=== PATIENT | female | born 1940 | race Caucasian/White ===

== ENCOUNTER 2018-05-27 09:23 | Emergency (ER) | payer MEDICARE, OTHER ==
[~2018-05-27] VITALS: Ht 172.7 cm; Wt 89.5 kg
[~2018-05-27 09:23] MED LIST: AMIT-189 PO; ASPI-1265 PO; CBD OIL PO; CHOL10002 PO
[2018-05-27] MEDS ORDERED: triamcinolone acetonide 40mg/ml inj IJ ONE (12:25)
[2018-05-27] MEDS ORDERED: BUPIVAcaine/PF 2.5 mg/ml (0.25%) 30ml vial IJ ONE (12:25)
[2018-05-27] MEDS ORDERED: BUPIVAcaine/PF 2.5mg/ml (0.25%) 10ml vial IJ ONE (12:30)
[2018-05-27] MEDS ORDERED: HYDROcodone/acetaminophen 10/325mg tab PO ONE (12:55)
[2018-05-27] MEDS ORDERED: HYDR-3973 PO (13:15)
[2018-05-27 13:22] VITALS: BP 146/85
== END 2018-05-27 13:24 | disposition home or self-care (01) ==
LOC: ER 09:24
DX: M25.412 Effusion, left shoulder (principal); M25.512 Pain in left shoulder; M06.9 Rheumatoid arthritis, unspecified; E78.00 Pure hypercholesterolemia, unspecified; I10 Essential (primary) hypertension; G89.29 Other chronic pain; Z98.890 Other specified postprocedural states; Z88.0 Allergy status to penicillin; Z88.1 Allergy status to other antibiotic agents; Z88.5 Allergy status to narcotic agent; Z79.82 Long term (current) use of aspirin
CPT/HCPCS: 20552; 99284; J3301; J3490

== ENCOUNTER 2018-10-13 08:58 | Inpatient (IN) | payer MEDICARE, OTHER ==
[~2018-10-13] VITALS: Ht 172.7 cm; Wt 86.4 kg
[2018-10-13] MEDS ORDERED: normal saline 1000ML IV soln IVB ONE (09:15)
[2018-10-13] MEDS ORDERED: ondansetron/PF 4mg/2ml inj IV ONE (09:15)
--- NOTE | 2018-10-13 09:26 | NUR ---
CAREGIVER MONICA PHONE NUMBER [phone]
[2018-10-13 09:35] LABS: BASOPHILS % (AUTO) 0.3 % (0-1); EOSINOPHILS # (AUTO) 0.3 X10'3 (0-0.9); EOSINOPHILS % (AUTO) 2.6 % (0-6); HEMOGLOBIN 11.3 g/dl (12.0-16.0); LYMPHOCYTES # (AUTO) 1.2 X10'3 (1.1-4.8); LYMPHOCYTES % (AUTO) 11.5 % (21-51); MEAN CORPUSCULAR HEMOGLOBIN 30.7 PG (27.0-31.0); MEAN CORPUSCULAR HGB CONC 33.2 g/dL (33.0-36.5); MEAN CORPUSCULAR VOLUME 92.4 FL (78-98); MEAN PLATELET VOLUME 9.2 FL (7.4-10.4); MONOCYTES # (AUTO) 1.1 X10'3 (0-0.9); MONOCYTES % (AUTO) 9.8 % (2-12); NEUTROPHILS # (AUTO) 8.1 X10'3 (1.8-7.7); NEUTROPHILS % (AUTO) 75.8 % (42-75); PLATELET COUNT 314 X10'3 (140-440); RED BLOOD COUNT 3.68 X10'6 (4.20-5.60); RED CELL DISTRIBUTION WIDTH 13.5 % (11.5-14.5); WHITE BLOOD COUNT 10.7 X10'3 (4.5-11.0)
[2018-10-13 09:44] LABS: ALANINE AMINOTRANSFERASE 11 U/L (12-78); ALBUMIN 2.8 G/DL (3.4-5.0); ALBUMIN/GLOBULIN RATIO 0.7 (1.1-1.5); ALKALINE PHOSPHATASE 79 IU/L (46-116); ANION GAP 12 (8-16); ASPARTATE AMINO TRANSFERASE 6 U/L (10-37); BILIRUBIN,TOTAL 0.2 MG/DL (0.1-1.0); BLOOD UREA NITROGEN 45 MG/DL (7-18); BUN/CREATININE RATIO 9.3 (6.6-38.0); CALCIUM 8.6 MG/DL (8.5-10.1); CHLORIDE 110 MMOL/L (99-107); CREATININE 4.82 MG/DL (0.40-0.90); GLUCOSE 112 MG/DL (70-104); POTASSIUM 4.5 MMOL/L (3.5-5.1); SODIUM 143 MMOL/L (135-145); TOTAL CARBON DIOXIDE 20.7 MMOL/L (24-32); eGFR 9 ML/MIN
[2018-10-13 09:48] LABS: LIPASE 65 U/L (73-393); TROPONIN I < 0.04 NG/ML (0.0-0.05)
[2018-10-13 10:04] LABS: CLARITY,URINE SLIGHTLY CLOUDY (Clear); COLOR,URINE YELLOW (Yellow); GLUCOSE, URINE NEGATIVE (Neg); KETONES,URINE NEGATIVE (Neg); LEUKOCYTE ESTERASE ,URINE NEGATIVE (Neg); NITRITES, URINE NEGATIVE (Neg); OCCULT BLOOD,URINE NEGATIVE (Neg); PROTEIN,URINE 100 mg/dl (Neg); UROBILINOGEN,URINE 0.2 E.U/dL (0.2-1.0)
[2018-10-13 10:05] LABS: UA COLLECTION TYPE STRAIGHT CATH
[2018-10-13 10:15] LABS: BACTERIA,URINE NONE SEEN /HPF (Neg); RBC,URINE NONE SEEN /HPF (0-2); SQUAMOUS EPITHELIAL CELL,UR FEW /LPF (FEW); WBC,URINE 0-4 /HPF (0-4)
[2018-10-13 10:16] LABS: AMORPHOUS URATES 1+
[2018-10-13] MEDS ORDERED: acetaminophen 325mg tablet PO PRN ×2 (10:25)
[2018-10-13] MEDS ORDERED: ondansetron/PF 4mg/2ml inj IV PRN (10:25)
[2018-10-13] MEDS ORDERED: HYDROcodone/acetaminophen 5mg/325mg tablet PO PRN (10:25)
[2018-10-13] MEDS ORDERED: morphine 2 MG/ML inj. syringe IV PRN (10:25)
--- NOTE | 2018-10-13 10:49 | NUR ---
US WITH PATIENT
--- NOTE | 2018-10-13 11:12 | NUR ---
UNABLE TO UPDATE HOME MEDICATIONS BECAUSE ALFONSOVER HAS NOT RETURNED WITH MEDICATIONS
[2018-10-13] MEDS ORDERED: AMLO10TA PO (12:01)
--- NOTE | 2018-10-13 12:16 | NUR ---
Received report from ED RN Lj. Patient arrived to PCU at 1130 and was transferred to the bed. Patient was oriented to the room, skin check was performed, physical assessment was done and the patient was set up with a wick. Vital signs were obtainwed and telemetry monitoring was initiated. Will continue to monitor.
[2018-10-13] MEDS ORDERED: metoclopramide 10mg tablet PO PRN (12:25)
[2018-10-13] MEDS ORDERED: pantoprazole 40mg Tablet.DR PO SCH (12:25)
[2018-10-13] MEDS: normal saline 1000ml 1,000 ML IV SCH (12:39)
[2018-10-13] MEDS ORDERED: SODI650T29 PO (14:09)
[2018-10-13] MEDS ORDERED: FERR325T32 PO (14:09)
[2018-10-13] MEDS ORDERED: SIMV20TA5 PO (14:09)
[2018-10-13 15:00] VITALS: BP 157/80
--- NOTE | 2018-10-13 16:03 | NUR ---
promotional table spacer PAGER ID: [phone] MESSAGE: Francesco 2017BMaldonado. Pt would like something for heart burn please, she uses tums at home. Vandana [phone]
--- NOTE | 2018-10-13 16:49 | NUR ---
PAGER ID: [phone] MESSAGE: Maldonado Tilley. patient has a 24 hour urine collection ordered by Dr. Alatorre, and we have tried [address] a quevedo catheter with no success. Please advise Vandana [phone]
[2018-10-13] MEDS ORDERED: pantoprazole 40mg Tablet.DR PO ONE (17:20)
--- NOTE | 2018-10-13 18:11 | NUR ---
Problems reprioritized. Patient report given, questions answered & plan of care reviewed with Torri SCHROEDER. Patient stable at transfer of care.
--- NOTE | 2018-10-13 18:16 | NUR ---
Patient in room PCU 3017. I have received report from ELDA Ross and had the opportunity to ask questions and assume patient care.
[2018-10-13 19:00] VITALS: BP 164/87
[2018-10-13] MEDS: nystatin 15 GM powder TP SCH (19:58)
[2018-10-13] MEDS: lactobacillus rhamnosus 10,000 MMU CELLS/CAPSULE PO SCH (19:59)
[2018-10-13] MEDS: docusate sod 100mg capsule PO SCH (19:59)
[2018-10-13] MEDS: heparin, porcine 5000 units/ml vial SQ SCH (20:14)
[2018-10-13 23:00] VITALS: BP 140/66
[2018-10-14] VITALS (11 sets, daily range): BP systolic 100–168; BP diastolic 63–81
[2018-10-14] MEDS: normal saline 1000ml 1,000 ML IV SCH ×3 (04:06→16:30)
[2018-10-14 05:41] LABS: BASOPHILS % (AUTO) 0.3 % (0-1); EOSINOPHILS # (AUTO) 0.4 X10'3 (0-0.9); EOSINOPHILS % (AUTO) 3.6 % (0-6); HEMATOCRIT 30.1 % (35.0-45.0); HEMOGLOBIN 9.9 g/dl (12.0-16.0); LYMPHOCYTES # (AUTO) 1.8 X10'3 (1.1-4.8); LYMPHOCYTES % (AUTO) 18.1 % (21-51); MEAN CORPUSCULAR HEMOGLOBIN 30.5 PG (27.0-31.0); MEAN CORPUSCULAR HGB CONC 32.8 g/dL (33.0-36.5); MEAN CORPUSCULAR VOLUME 93.1 FL (78-98); MEAN PLATELET VOLUME 9.7 FL (7.4-10.4); MONOCYTES # (AUTO) 1.1 X10'3 (0-0.9); NEUTROPHILS # (AUTO) 6.7 X10'3 (1.8-7.7); PLATELET COUNT 280 X10'3 (140-440); RED BLOOD COUNT 3.23 X10'6 (4.20-5.60); RED CELL DISTRIBUTION WIDTH 13.7 % (11.5-14.5)
[2018-10-14 05:42] LABS: ALBUMIN 2.3 G/DL (3.4-5.0); ANION GAP 9 (8-16); BLOOD UREA NITROGEN 39 MG/DL (7-18); BUN/CREATININE RATIO 8.5 (6.6-38.0); CALCIUM 7.6 MG/DL (8.5-10.1); CHLORIDE 114 MMOL/L (99-107); CREATININE 4.59 MG/DL (0.40-0.90); GLUCOSE 87 MG/DL (70-104); MAGNESIUM 1.8 MG/DL (1.5-2.4); PHOSPHORUS 4.7 MG/DL (2.3-4.5); POTASSIUM 4.6 MMOL/L (3.5-5.1); SODIUM 144 MMOL/L (135-145); TOTAL CARBON DIOXIDE 20.8 MMOL/L (24-32); eGFR 9 ML/MIN
--- NOTE | 2018-10-14 06:26 | NUR ---
Problems reprioritized. Patient report given, questions answered & plan of care reviewed with ELDA Ross .
--- NOTE | 2018-10-14 06:26 | NUR ---
Patient in room PCU 3017. I have received report from ELDA Wild and had the opportunity to ask questions and assume patient care.
--- NOTE | 2018-10-14 06:35 | NUR ---
Patient in room PCU 3017. I have received report from Torri SCHROEDER and had the opportunity to ask questions and assume patient care.
[2018-10-14] MEDS: ciprofloxacin 250mg tablet PO SCH (07:44)
[2018-10-14] MEDS: pantoprazole 40mg Tablet.DR PO SCH (07:44)
[2018-10-14] MEDS: lactobacillus rhamnosus 10,000 MMU CELLS/CAPSULE PO SCH ×2 (07:44→19:25)
[2018-10-14] MEDS: amLODIPine 5mg tablet PO SCH (07:44)
[2018-10-14] MEDS: docusate sod 100mg capsule PO SCH ×2 (07:44→19:25)
[2018-10-14] MEDS: aspirin 81mg tab.chew PO SCH (07:44)
[2018-10-14] MEDS: heparin, porcine 5000 units/ml vial SQ SCH ×2 (07:48→19:25)
[2018-10-14] MEDS: nystatin 15 GM powder TP SCH ×2 (07:50→19:25)
--- NOTE | 2018-10-14 12:04 | NUR ---
Alda Okeefe rm [id number] re: Orthostats > 30 mm/hg drop in SBP from sitting to standing SBP 160 drop to 100 asymptomatic
--- NOTE | 2018-10-14 18:15 | NUR ---
Problems reprioritized. Patient report given, questions answered & plan of care reviewed with Alex Aden stable at transfer of care.
--- NOTE | 2018-10-14 18:29 | NUR ---
Problems reprioritized. Patient report given, questions answered & plan of care reviewed with Alex SCHROEDER. Patient stable at transfer of care.
--- NOTE | 2018-10-14 18:30 | NUR ---
Problems reprioritized. Patient report given, questions answered & plan of care reviewed with ELDA Cool .
--- NOTE | 2018-10-14 18:33 | NUR ---
Orientee documentation: I have reviewed and agree with interventions, assessments performed and documented by Shannen SCHROEDER. Orientee Medication Administration: For this medication-pass time frame, medication were reviewed, dispensed, administered and documented per hospital policy by Shannen SCHROEDER.
--- NOTE | 2018-10-14 18:45 | NUR ---
Patient in room PCU 3017. I have received report from Vandana/Shannen RNs and had the opportunity to ask questions and assume patient care.
[2018-10-14] MEDS ORDERED: Melatonin 3mg tablet PO PRN (22:15)
[2018-10-15] MEDS: normal saline 1000ml 1,000 ML IV SCH (01:10)
[2018-10-15 02:00] VITALS: BP 134/76
[2018-10-15 06:01] LABS: ALBUMIN 2.3 G/DL (3.4-5.0); ANION GAP 10 (8-16); BLOOD UREA NITROGEN 39 MG/DL (7-18); BUN/CREATININE RATIO 8.7 (6.6-38.0); CALCIUM 7.5 MG/DL (8.5-10.1); CHLORIDE 114 MMOL/L (99-107); CREATININE 4.47 MG/DL (0.40-0.90); GLUCOSE 95 MG/DL (70-104); MAGNESIUM 1.7 MG/DL (1.5-2.4); POTASSIUM 4.8 MMOL/L (3.5-5.1); SODIUM 143 MMOL/L (135-145); TOTAL CARBON DIOXIDE 18.7 MMOL/L (24-32); eGFR 9 ML/MIN
[2018-10-15 06:02] LABS: BASOPHILS # (AUTO) 0.1 X10'3 (0-0.2); BASOPHILS % (AUTO) 0.6 % (0-1); EOSINOPHILS # (AUTO) 0.4 X10'3 (0-0.9); EOSINOPHILS % (AUTO) 4.3 % (0-6); HEMATOCRIT 30.7 % (35.0-45.0); HEMOGLOBIN 9.9 g/dl (12.0-16.0); LYMPHOCYTES % (AUTO) 19.7 % (21-51); MEAN CORPUSCULAR HEMOGLOBIN 30.1 PG (27.0-31.0); MEAN CORPUSCULAR HGB CONC 32.2 g/dL (33.0-36.5); MEAN CORPUSCULAR VOLUME 93.5 FL (78-98); MEAN PLATELET VOLUME 10.2 FL (7.4-10.4); MONOCYTES # (AUTO) 1.2 X10'3 (0-0.9); MONOCYTES % (AUTO) 11.6 % (2-12); NEUTROPHILS # (AUTO) 6.5 X10'3 (1.8-7.7); NEUTROPHILS % (AUTO) 63.8 % (42-75); PLATELET COUNT 287 X10'3 (140-440); RED BLOOD COUNT 3.28 X10'6 (4.20-5.60); RED CELL DISTRIBUTION WIDTH 13.8 % (11.5-14.5); WHITE BLOOD COUNT 10.2 X10'3 (4.5-11.0)
--- NOTE | 2018-10-15 06:09 | NUR ---
Orientee documentation: I have reviewed and agree with all interventions, assessments performed and documented by Sierra SCHROEDER
--- NOTE | 2018-10-15 06:28 | NUR ---
Problems reprioritized. Patient report given, questions answered & plan of care reviewed with Shannen SCHROEDER.
--- NOTE | 2018-10-15 06:30 | NUR ---
Patient in room PCU 3017. I have received report from ELDA Cool and had the opportunity to ask questions and assume patient care.
[2018-10-15 07:00] VITALS: BP 133/71
[2018-10-15] MEDS: docusate sod 100mg capsule PO SCH (07:39)
[2018-10-15] MEDS: ciprofloxacin 250mg tablet PO SCH (07:39)
[2018-10-15] MEDS: amLODIPine 5mg tablet PO SCH (07:39)
[2018-10-15] MEDS: aspirin 81mg tab.chew PO SCH (07:39)
[2018-10-15] MEDS: pantoprazole 40mg Tablet.DR PO SCH (07:39)
[2018-10-15] MEDS: heparin, porcine 5000 units/ml vial SQ SCH (07:40)
[2018-10-15] MEDS: lactobacillus rhamnosus 10,000 MMU CELLS/CAPSULE PO SCH (07:40)
[2018-10-15] MEDS: nystatin 15 GM powder TP SCH (07:43)
--- NOTE | 2018-10-15 10:22 | NUR ---
Alda Okeefe Rm 17B waiting for discharge orders. Thank you ELDA Pride [id number]
[2018-10-15] MEDS ORDERED: CIPR250T4 PO (10:55)
[2018-10-15] MEDS ORDERED: METR-159 PO (10:55)
--- NOTE | 2018-10-15 11:45 | NUR ---
Pt discharge to home. Staff wheelchair to curb and transported in private car with caregiver. All belongings and paperwork in hand.
== END 2018-10-15 11:45 | disposition home or self-care (01) | DRG 391 ==
LOC: ER 08:59 → PCU 3S 11:36 → CMPBEDREQ 15:16
PROVIDERS: ADMIT Internal Medicine; ATTEND Internal Medicine
DX: A08.4 Viral intestinal infection, unspecified (principal); N17.0 Acute kidney failure with tubular necrosis; N18.4 Chronic kidney disease, stage 4 (severe); E78.5 Hyperlipidemia, unspecified; M06.9 Rheumatoid arthritis, unspecified; E86.0 Dehydration; E78.00 Pure hypercholesterolemia, unspecified; I12.9 Hypertensive chronic kidney disease with stage 1 through stage 4 chronic kidney disease, or unspecified chronic kidney disease; K21.9 Gastro-esophageal reflux disease without esophagitis; Z66 Do not resuscitate
CPT/HCPCS: 36415; 71045; 74018; 76700; 80048; 80053; 81001; 82570; 83605; 83690; 83735; 84100; 84156; 84484; 84540; 85025; 87040; 87081; 93005; 93306; 96361; 96374; 97110; 97116; 97162; 99285; G0378; J1644; J2405; J7030

== ENCOUNTER 2019-09-30 16:18 | Emergency (ER) | payer MEDICARE, OTHER ==
[~2019-09-30] VITALS: Ht 172.7 cm; Wt 72.2 kg
[~2019-09-30 16:18] MED LIST changes: +APIX2.5T PO; -ASPI-1265 PO; -CBD OIL PO; -CHOL10002 PO; +DILT240C94 PO; +ONDA4TAB6 PO
[2019-09-30] MEDS ORDERED: diltiazem 5mg/ml 5ml inj. IV ONE ×2 (16:45→18:10)
[2019-09-30] MEDS ORDERED: diltiazem 30mg tablet PO ONE ×2 (16:45→18:10)
[2019-09-30 17:04] LABS: BASOPHILS % (AUTO) 0.3 % (0-1); EOSINOPHILS # (AUTO) 0.3 X10'3 (0-0.9); EOSINOPHILS % (AUTO) 3.3 % (0-6); HEMATOCRIT 30.9 % (35.0-45.0); HEMOGLOBIN 10.1 g/dl (12.0-16.0); LYMPHOCYTES # (AUTO) 1.8 X10'3 (1.1-4.8); LYMPHOCYTES % (AUTO) 19.4 % (21-51); MEAN CORPUSCULAR HEMOGLOBIN 31.6 PG (27.0-31.0); MEAN CORPUSCULAR HGB CONC 32.6 g/dL (33.0-36.5); MEAN CORPUSCULAR VOLUME 96.8 FL (78-98); MONOCYTES # (AUTO) 1.1 X10'3 (0-0.9); MONOCYTES % (AUTO) 11.8 % (2-12); NEUTROPHILS % (AUTO) 65.2 % (42-75); PLATELET COUNT 301 X10'3 (140-440); RED BLOOD COUNT 3.19 X10'6 (4.20-5.60); WHITE BLOOD COUNT 9.2 X10'3 (4.5-11.0)
[2019-09-30] MEDS ORDERED: APIX2.5T PO (17:11)
[2019-09-30] MEDS ORDERED: DILT-103 PO (17:11)
[2019-09-30 17:15] LABS: ALANINE AMINOTRANSFERASE 21 U/L (12-78); ALBUMIN 3.3 G/DL (3.4-5.0); ALBUMIN/GLOBULIN RATIO 0.9 (1.1-1.5); ALKALINE PHOSPHATASE 114 IU/L (46-116); ANION GAP 13 (8-16); ASPARTATE AMINO TRANSFERASE 12 U/L (10-37); BILIRUBIN,TOTAL 0.4 MG/DL (0.1-1.0); BLOOD UREA NITROGEN 49 MG/DL (7-18); BUN/CREATININE RATIO 11.2 (6.6-38.0); CHLORIDE 110 MMOL/L (99-107); CREATININE 4.38 MG/DL (0.40-0.90); GLUCOSE 104 MG/DL (70-104); POTASSIUM 4.6 MMOL/L (3.5-5.1); SODIUM 143 MMOL/L (135-145); TOTAL CARBON DIOXIDE 20.2 MMOL/L (24-32); TOTAL PROTEIN 6.8 G/DL (6.4-8.2); eGFR 10 ML/MIN
[2019-09-30] MEDS ORDERED: acetaminophen 325mg tablet PO ONE (17:20)
[2019-09-30] MEDS ORDERED: hydrALAZINE 25 MG tablet PO STA (18:10)
--- NOTE | 2019-09-30 18:58 | NUR ---
PATIENT AMBULATED 40 FEET WITH SATURATION >94% RA DR. QUEZADA NOTIFIED
--- NOTE | 2019-09-30 19:21 | NUR ---
PT TO BE ADMITTED, AWAITING HOSPITALIST. MED REC COMPLETED ALREADY BY DAY PHARMACIST.
[2019-09-30] MEDS ORDERED: DILT300C53 PO (19:41)
[2019-09-30 20:26] VITALS: BP 123/59
== END 2019-09-30 20:28 | disposition home or self-care (01) ==
LOC: ER 16:18
DX: I48.92 Unspecified atrial flutter (principal); I12.9 Hypertensive chronic kidney disease with stage 1 through stage 4 chronic kidney disease, or unspecified chronic kidney disease; N18.9 Chronic kidney disease, unspecified; I48.91 Unspecified atrial fibrillation; E78.00 Pure hypercholesterolemia, unspecified; M06.9 Rheumatoid arthritis, unspecified; Z98.890 Other specified postprocedural states; Z79.899 Other long term (current) drug therapy; Z88.0 Allergy status to penicillin; Z88.1 Allergy status to other antibiotic agents
CPT/HCPCS: 36415; 71045; 80053; 83605; 83880; 84484; 85025; 87040; 93005; 96374; 96375; 96376; 99285; J3490

== ENCOUNTER 2020-11-20 15:07 | Emergency (ER) | payer OTHER ==
[~2020-11-20] VITALS: Ht 172.7 cm; Wt 55.9 kg
[~2020-11-20 15:07] MED LIST changes: +DILT-103 PO; -DILT240C94 PO; +LEVO250T58 PO; -ONDA4TAB6 PO
[2020-11-20 16:09] LABS: BASOPHILS # (AUTO) 0.1 X10'3 (0-0.2); BASOPHILS % (AUTO) 0.8 % (0-1); EOSINOPHILS # (AUTO) 0.1 X10'3 (0-0.9); EOSINOPHILS % (AUTO) 1.8 % (0-6); HEMATOCRIT 36.6 % (35.0-45.0); HEMOGLOBIN 12.1 g/dl (12.0-16.0); LYMPHOCYTES # (AUTO) 2.1 X10'3 (1.1-4.8); LYMPHOCYTES % (AUTO) 35.1 % (21-51); MEAN CORPUSCULAR HEMOGLOBIN 34.3 PG (27.0-31.0); MEAN CORPUSCULAR VOLUME 103.9 FL (78-98); MEAN PLATELET VOLUME 8.7 FL (7.4-10.4); MONOCYTES # (AUTO) 0.7 X10'3 (0-0.9); MONOCYTES % (AUTO) 11.4 % (2-12); NEUTROPHILS # (AUTO) 3.1 X10'3 (1.8-7.7); NEUTROPHILS % (AUTO) 50.9 % (42-75); PLATELET COUNT 260 X10'3 (140-440); RED BLOOD COUNT 3.52 X10'6 (4.20-5.60); RED CELL DISTRIBUTION WIDTH 15.9 % (11.5-14.5); WHITE BLOOD COUNT 6.1 X10'3 (4.5-11.0)
[2020-11-20 16:19] LABS: ALANINE AMINOTRANSFERASE 10 U/L (12-78); ALBUMIN 3.3 G/DL (3.4-5.0); ALBUMIN/GLOBULIN RATIO 1.1 (1.1-1.5); ALKALINE PHOSPHATASE 101 IU/L (46-116); ANION GAP 5 (8-16); ASPARTATE AMINO TRANSFERASE 9 U/L (10-37); BILIRUBIN,TOTAL 0.4 MG/DL (0.1-1.0); BLOOD UREA NITROGEN 36 MG/DL (7-18); BUN/CREATININE RATIO 9.1 (6.6-38.0); CALCIUM 8.6 MG/DL (8.5-10.1); CHLORIDE 105 MMOL/L (99-107); CREATININE 3.97 MG/DL (0.40-0.90); GLUCOSE 94 MG/DL (70-104); SODIUM 141 MMOL/L (135-145); TOTAL CARBON DIOXIDE 30.7 MMOL/L (24-32); TOTAL PROTEIN 6.4 G/DL (6.4-8.2); eGFR 11 ML/MIN
[2020-11-20 16:45] LABS: LIPASE 57 U/L (73-393)
--- NOTE | 2020-11-20 17:00 | NUR ---
Straight cath attempted at this time, no urine return, patient states she has not had water for a long time.
--- NOTE | 2020-11-20 18:25 | NUR ---
Call to caregiver Jez Barbosa [phone] to pick up man patient per Dr Gaston request.
--- NOTE | 2020-11-20 19:22 | NUR ---
attempted to call caregiver blane again and left message.
--- NOTE | 2020-11-20 19:31 | NUR ---
called home number and left message.
[2020-11-20 20:24] VITALS: BP 111/66
== END 2020-11-20 20:25 | disposition home or self-care (01) ==
LOC: ER 15:08
DX: J90 Pleural effusion, not elsewhere classified (principal); Z20.822 Contact with and (suspected) exposure to COVID-19; I12.0 Hypertensive chronic kidney disease with stage 5 chronic kidney disease or end stage renal disease; N18.6 End stage renal disease; E78.00 Pure hypercholesterolemia, unspecified; M06.9 Rheumatoid arthritis, unspecified; Z99.2 Dependence on renal dialysis; Z88.0 Allergy status to penicillin; Z88.1 Allergy status to other antibiotic agents; Z88.8 Allergy status to other drugs, medicaments and biological substances; Z79.2 Long term (current) use of antibiotics; Z79.899 Other long term (current) drug therapy
CPT/HCPCS: 36415; 71045; 80053; 83690; 83880; 84484; 85025; 87635; 93005; 99285; C9803

== ENCOUNTER 2020-12-06 06:57 | Day surgery (SDC) | payer OTHER ==
[2020-12-06] VITALS (8 sets, daily range): BP systolic 122–150; BP diastolic 51–70
[~2020-12-06] VITALS: Ht 172.7 cm; Wt 56.4 kg
[2020-12-06] MEDS ORDERED: albumin 25% 100mL bottle x 1 IV PRN (07:20)
== END 2020-12-06 11:15 | disposition home or self-care (01) ==
LOC: SSTAY O 06:57
PROVIDERS: ATTEND Radiology Vascular & Interventional Radiology
DX: J90 Pleural effusion, not elsewhere classified (principal); I48.0 Paroxysmal atrial fibrillation; I12.0 Hypertensive chronic kidney disease with stage 5 chronic kidney disease or end stage renal disease; N18.6 End stage renal disease; M06.9 Rheumatoid arthritis, unspecified; Z96.642 Presence of left artificial hip joint; Z20.822 Contact with and (suspected) exposure to COVID-19; Z90.710 Acquired absence of both cervix and uterus; Z98.890 Other specified postprocedural states; Z90.81 Acquired absence of spleen; Z88.0 Allergy status to penicillin; Z88.1 Allergy status to other antibiotic agents; Z88.8 Allergy status to other drugs, medicaments and biological substances
CPT/HCPCS: 32555; 36415; 71045; U0003

== ENCOUNTER 2021-01-20 14:05 | Inpatient (IN) | payer OTHER ==
[~2021-01-20] VITALS: Ht 172.7 cm; Wt 55.9 kg
[~2021-01-20 14:05] MED LIST changes: -AMIT-189 PO; -APIX2.5T PO; -LEVO250T58 PO
[2021-01-20] MEDS ORDERED: nitroGLYCERIN 0.4mg SUBLingual tab SL PRN ×2 (14:50→18:10)
[2021-01-20] MEDS ORDERED: aspirin 81mg tab.chew PO ONE (14:50)
[2021-01-20 15:08] LABS: BASOPHILS # (AUTO) 0.1 X10'3 (0-0.2); BASOPHILS % (AUTO) 1.4 % (0-1); EOSINOPHILS # (AUTO) 0.2 X10'3 (0-0.9); EOSINOPHILS % (AUTO) 3.7 % (0-6); HEMATOCRIT 36.5 % (35.0-45.0); HEMOGLOBIN 12.5 g/dl (12.0-16.0); LYMPHOCYTES # (AUTO) 1.8 X10'3 (1.1-4.8); MEAN CORPUSCULAR HEMOGLOBIN 34.6 PG (27.0-31.0); MEAN CORPUSCULAR HGB CONC 34.3 g/dL (33.0-36.5); MEAN CORPUSCULAR VOLUME 100.9 FL (78-98); MEAN PLATELET VOLUME 8.5 FL (7.4-10.4); MONOCYTES # (AUTO) 0.6 X10'3 (0-0.9); MONOCYTES % (AUTO) 11.9 % (2-12); NEUTROPHILS # (AUTO) 2.3 X10'3 (1.8-7.7); PLATELET COUNT 255 X10'3 (140-440); RED BLOOD COUNT 3.61 X10'6 (4.20-5.60); RED CELL DISTRIBUTION WIDTH 13.7 % (11.5-14.5); WHITE BLOOD COUNT 4.9 X10'3 (4.5-11.0)
--- NOTE | 2021-01-20 15:12 | NUR ---
RICKEY PATIENT'S CAREGIVER: RICKEY CALLED FOR CONDITION REPORT AND STATES THAT HE IS RETURNING TO [place] AND PROBABLY WILL NOT BE ABLE TO PROVIDE TRANSPORTATION FOR PATIENT UNTIL TOMORROW MORNING. RICKEY IS BEING INFORMED THAT WORK-UP IS IN PROGRESS, AND IT IS UNKNOWN IF SHE WILL BE DC OR ADMITTED WHEN WORK-UP IS COMPLETE.
[2021-01-20 15:18] LABS: ALANINE AMINOTRANSFERASE 10 U/L (12-78); ALBUMIN 3.3 G/DL (3.4-5.0); ALKALINE PHOSPHATASE 95 IU/L (46-116); ANION GAP 4 (8-16); ASPARTATE AMINO TRANSFERASE 9 U/L (10-37); BILIRUBIN,TOTAL 0.5 MG/DL (0.1-1.0); BLOOD UREA NITROGEN 24 MG/DL (7-18); BUN/CREATININE RATIO 8.1 (6.6-38.0); CALCIUM 8.4 MG/DL (8.5-10.1); CHLORIDE 103 MMOL/L (99-107); CREATININE 2.95 MG/DL (0.40-0.90); GLUCOSE 90 MG/DL (70-104); POTASSIUM 3.8 MMOL/L (3.5-5.1); SODIUM 144 MMOL/L (135-145); TOTAL CARBON DIOXIDE 36.7 MMOL/L (24-32); TOTAL PROTEIN 6.6 G/DL (6.4-8.2); eGFR 15 ML/MIN
[2021-01-20 15:26] LABS: MAGNESIUM 2.2 MG/DL (1.5-2.4)
--- NOTE | 2021-01-20 17:50 | NUR ---
PATIENT WAS SITTING ON EDGE OF THE GURNEY, BUT FOUND BY STAFF MEMBER, SITTING ON THE FLOOR AT THE FOOT OF THE GURNEY. C/O HEAD AND NECK PAIN. CT SCAN ORDERED. DR. MILLER INFORMED OF PROBABLE FALL.
[2021-01-20] MEDS ORDERED: magnesium 4gm in 100ml NS 100 ML IV PRN (18:10)
[2021-01-20] MEDS ORDERED: aspirin 325mg tablet PO ONE (18:10)
[2021-01-20] MEDS ORDERED: morphine 2 MG/ML inj. syringe IV PRN ×2 (18:10)
[2021-01-20] MEDS ORDERED: aminophylline 250mg/10ml inj. IV PRN (18:10)
[2021-01-20] MEDS ORDERED: magnesium 2GM in 50ml NS 50 ML IV PRN (18:10)
[2021-01-20] MEDS ORDERED: mag hydrox/Alum hydrox/simeth 30ml oral suspension PO PRN (18:10)
[2021-01-20] MEDS ORDERED: acetaminophen 325mg tablet PO PRN ×2 (18:10)
[2021-01-20] MEDS ORDERED: acetaminophen 650mg rectal suppository RC PRN (18:10)
[2021-01-20] MEDS ORDERED: metoprolol tartrate 1mg/ml inj IV PRN (18:10)
[2021-01-20] MEDS: normal saline 1000ml 1,000 ML IV SCH (18:10)
[2021-01-20] MEDS ORDERED: ondansetron/PF 4mg/2ml inj IV PRN (18:10)
[2021-01-20] MEDS ORDERED: magnesium hydroxide 30ml (MOM) UD suspension PO PRN (18:10)
[2021-01-20] MEDS ORDERED: HYDROcodone/acetaminophen 10/325mg tab PO PRN (18:10)
[2021-01-20] MEDS ORDERED: potassium Cl 20 mEq SR tablet PO PRN ×2 (18:10)
[2021-01-20] MEDS ORDERED: potassium Cl 40MEQ/1/2NS 520ml 520 ML IV PRN ×2 (18:10)
[2021-01-20] MEDS ORDERED: bisacodyl 10mg suppository rectal RC PRN (18:10)
[2021-01-20] MEDS ORDERED: magnesium Cl slow-release 64mg tablet PO PRN (18:10)
[2021-01-20] MEDS ORDERED: HYDROcodone/acetaminophen 5mg/325mg tablet PO PRN (18:10)
[2021-01-20] MEDS ORDERED: diphenhydrAMINE 25mg capsule PO PRN (18:10)
[2021-01-20] MEDS ORDERED: regadenoson 0.4mg/5ml syringe IV ONE (18:10)
[2021-01-20 19:10] LABS: HEMOGLOBIN A1C 5.3 % (4.5-6.2)
[2021-01-20] MEDS: K and/or MAG REPLACEMENT MC SCH (20:00)
--- NOTE | 2021-01-20 21:28 | NUR ---
Patient found out of bed with her walker standing in the doorway of ER 13. Pt told she needed to stay in bed in her room for safety reasons. Pt indicated she was unhappy with being in the ER.
[2021-01-20 22:00] VITALS: BP 123/68
[2021-01-20] MEDS: docusate sod 100mg capsule PO SCH (22:53)
[2021-01-20] MEDS: heparin, porcine 5000 units/ml vial SQ SCH (22:54)
[2021-01-21] VITALS (15 sets, daily range): BP systolic 128–153; BP diastolic 53–73
--- NOTE | 2021-01-21 04:52 | NUR ---
Patient at the ER for chest pain. During the night, 9/10 generalized pain was medicated with Morphine IV PRN, and patient later stated relief. Has denied respiratory distress during the shift, and been saturating at 95% and up. Started NPO after midnight for Lexiscan stress test in the am.
--- NOTE | 2021-01-21 07:02 | NUR ---
[facility], WILL POSSIBLY BE PATIENT'S TRANSPORTATION HOME TODAY AND HER CONTACT NUMBER IS: [phone]
[2021-01-21] MEDS: K and/or MAG REPLACEMENT MC SCH ×2 (08:00→20:00)
--- NOTE | 2021-01-21 09:30 | NUR ---
PATIENT WENT TO NUCLEAR MEDICINE FOR STRESS TEST.
[2021-01-21] MEDS ORDERED: regadenoson 0.4mg/5ml syringe IV ONE (09:45)
[2021-01-21 11:32] LABS: ALANINE AMINOTRANSFERASE 13 U/L (12-78); ALBUMIN 3.8 G/DL (3.4-5.0); ALBUMIN/GLOBULIN RATIO 1.1 (1.1-1.5); ALKALINE PHOSPHATASE 100 IU/L (46-116); ANION GAP 9 (8-16); ASPARTATE AMINO TRANSFERASE 20 U/L (10-37); BILIRUBIN,TOTAL 0.5 MG/DL (0.1-1.0); BLOOD UREA NITROGEN 35 MG/DL (7-18); CALCIUM 8.7 MG/DL (8.5-10.1); CHLORIDE 100 MMOL/L (99-107); GLUCOSE 93 MG/DL (70-104); POTASSIUM 4.5 MMOL/L (3.5-5.1); SODIUM 142 MMOL/L (135-145); TOTAL CARBON DIOXIDE 33.3 MMOL/L (24-32); TOTAL PROTEIN 7.2 G/DL (6.4-8.2); eGFR 11 ML/MIN
[2021-01-21 11:34] LABS: CHOL/HDL RATIO 4.8 (0.00-4.99); CHOLESTEROL 247 MG/DL (0-200); HDL CHOLESTEROL 52 MG/DL (35-60); HEMOGLOBIN 13.8 g/dl (12.0-16.0); LDL CHOLESTEROL 162 MG/DL (50-100); MAGNESIUM 2.4 MG/DL (1.5-2.4); PHOSPHORUS 4.3 MG/DL (2.3-4.5); PLATELET COUNT 262 X10'3 (140-440); TRIGLYCERIDES 156 MG/DL (20-135)
[2021-01-21 11:35] LABS: BASOPHILS % (AUTO) 0.5 % (0-1); EOSINOPHILS # (AUTO) 0.2 X10'3 (0-0.9); HEMATOCRIT 40.6 % (35.0-45.0); LYMPHOCYTES # (AUTO) 2.3 X10'3 (1.1-4.8); LYMPHOCYTES % (AUTO) 30.1 % (21-51); MEAN CORPUSCULAR HEMOGLOBIN 34.9 PG (27.0-31.0); MEAN CORPUSCULAR HGB CONC 33.9 g/dL (33.0-36.5); MEAN PLATELET VOLUME 9.1 FL (7.4-10.4); MONOCYTES # (AUTO) 0.9 X10'3 (0-0.9); MONOCYTES % (AUTO) 11.9 % (2-12); NEUTROPHILS # (AUTO) 4.3 X10'3 (1.8-7.7); NEUTROPHILS % (AUTO) 55.5 % (42-75); RED BLOOD COUNT 3.95 X10'6 (4.20-5.60); WHITE BLOOD COUNT 7.8 X10'3 (4.5-11.0)
[2021-01-21] MEDS: docusate sod 100mg capsule PO SCH ×2 (12:25→21:02)
[2021-01-21] MEDS: diltiazem CD 120mg capsule (once-daily) PO SCH (12:26)
[2021-01-21] MEDS: aspirin 81mg, enteric-coated 1 TAB TABLET.DR PO SCH (12:31)
[2021-01-21] MEDS: heparin, porcine 5000 units/ml vial SQ SCH ×2 (12:31→21:03)
[2021-01-21] MEDS: normal saline 1000ml 1,000 ML IV SCH (14:10)
[2021-01-22 02:00] VITALS: BP 131/66
--- NOTE | 2021-01-22 06:24 | NUR ---
Patient in room PCU 3012. I have received report from JULIEN SCHROEDER and had the opportunity to ask questions and assume patient care.
--- NOTE | 2021-01-22 06:29 | NUR ---
Patient in room PCU 3012. I have received report from Shawna SCHROEDER and had the opportunity to ask questions and assume patient care.
[2021-01-22 06:32] LABS: BASOPHILS % (AUTO) 0.8 % (0-1); EOSINOPHILS # (AUTO) 0.2 X10'3 (0-0.9); EOSINOPHILS % (AUTO) 3.4 % (0-6); HEMATOCRIT 35.7 % (35.0-45.0); HEMOGLOBIN 11.9 g/dl (12.0-16.0); LYMPHOCYTES # (AUTO) 2.2 X10'3 (1.1-4.8); LYMPHOCYTES % (AUTO) 36.4 % (21-51); MEAN CORPUSCULAR HEMOGLOBIN 34.2 PG (27.0-31.0); MEAN CORPUSCULAR HGB CONC 33.2 g/dL (33.0-36.5); MEAN CORPUSCULAR VOLUME 103.1 FL (78-98); MEAN PLATELET VOLUME 9.4 FL (7.4-10.4); MONOCYTES # (AUTO) 0.8 X10'3 (0-0.9); MONOCYTES % (AUTO) 13.7 % (2-12); NEUTROPHILS # (AUTO) 2.8 X10'3 (1.8-7.7); NEUTROPHILS % (AUTO) 45.7 % (42-75); PLATELET COUNT 245 X10'3 (140-440); RED BLOOD COUNT 3.47 X10'6 (4.20-5.60); RED CELL DISTRIBUTION WIDTH 13.9 % (11.5-14.5); WHITE BLOOD COUNT 6.1 X10'3 (4.5-11.0)
[2021-01-22 07:00] VITALS: BP 137/64
[2021-01-22 07:10] LABS: ALANINE AMINOTRANSFERASE 9 U/L (12-78); ALBUMIN 3.2 G/DL (3.4-5.0); ALKALINE PHOSPHATASE 93 IU/L (46-116); ANION GAP 11 (8-16); ASPARTATE AMINO TRANSFERASE 12 U/L (10-37); BILIRUBIN,TOTAL 0.3 MG/DL (0.1-1.0); BLOOD UREA NITROGEN 50 MG/DL (7-18); BUN/CREATININE RATIO 11.4 (6.6-38.0); CALCIUM 8.3 MG/DL (8.5-10.1); CHLORIDE 104 MMOL/L (99-107); CREATININE 4.39 MG/DL (0.40-0.90); GLUCOSE 90 MG/DL (70-104); MAGNESIUM 2.4 MG/DL (1.5-2.4); PHOSPHORUS 5.5 MG/DL (2.3-4.5); POTASSIUM 4.6 MMOL/L (3.5-5.1); SODIUM 144 MMOL/L (135-145); TOTAL CARBON DIOXIDE 28.7 MMOL/L (24-32); TOTAL PROTEIN 6.3 G/DL (6.4-8.2); eGFR 10 ML/MIN
[2021-01-22] MEDS: K and/or MAG REPLACEMENT MC SCH (08:00)
[2021-01-22] MEDS: docusate sod 100mg capsule PO SCH (08:00)
[2021-01-22] MEDS: diltiazem CD 120mg capsule (once-daily) PO SCH (08:43)
[2021-01-22] MEDS: aspirin 81mg, enteric-coated 1 TAB TABLET.DR PO SCH (08:43)
[2021-01-22] MEDS: heparin, porcine 5000 units/ml vial SQ SCH (08:44)
--- NOTE | 2021-01-22 10:51 | NUR ---
Verbal orders from Dr. Bryant for Lipitor 40 mg HS, Eliquis 2.5 mg BID, Imdur 30 mg once daily, and Coreg 6.25 mg BID
[2021-01-22 11:00] VITALS: BP 114/67
[2021-01-22] MEDS ORDERED: ATOR20TA66 PO (13:42)
[2021-01-22] MEDS ORDERED: APIX2.5T PO (13:42)
[2021-01-22] MEDS ORDERED: ISOS30TA84 PO (13:42)
[2021-01-22] MEDS ORDERED: ASPI-1071 PO (13:42)
[2021-01-22] MEDS ORDERED: CARV6.253 PO (13:42)
[2021-01-22] MEDS ORDERED: NITR0.4T51 SL (13:42)
--- NOTE | 2021-01-22 16:17 | NUR ---
Pt stable for discharge per MD order, all discharge instructions reviewed with patient and all questions answered. New prescriptions faxed to pharmacy of choice. PIV discontinued, cannula intact. Telemetry discontinued, agent telegrapher notified. All belongings collected and sent with patient. Patient picked up by media developer inprivate vehicle, wheeled to lobby by staff.
[2021-01-22] MEDS ORDERED: apixaban 2.5mg tablet PO SCH (20:00)
[2021-01-22] MEDS ORDERED: carvedilol 6.25mg tablet PO SCH (20:00)
[2021-01-22] MEDS ORDERED: atorvastatin 20mg tablet PO SCH (21:00)
[2021-01-23] MEDS ORDERED: heparin 1,000unit/ml 10ml vial 10 ML IV ONE (08:00)
[2021-01-23] MEDS ORDERED: heparin 1,000 units/ml 10ml inj IV ONE (08:00)
[2021-01-23] MEDS ORDERED: heparin 1,000 units/ml 10ml inj HE ONE ×2 (08:00)
[2021-01-23] MEDS ORDERED: isosorbide mononitrate 30mg tab.SR.24H PO SCH (08:00)
[2021-01-23] MEDS ORDERED: albumin (human) 25% 100ml IV 100 ML IV PRN (08:00)
== END 2021-01-22 16:20 | disposition home or self-care (01) | DRG 302 ==
LOC: ER 14:05 → ED HOLD 18:13 → UNDOADMIN 18:28 → ED HOLD 18:28 → EDBEDREQ 20:09 → PCU 3S 01-21 19:50
PROVIDERS: ADMIT Family Medicine; ATTEND Family Medicine
PROC: 4A02XM4 Measurement of Cardiac Total Activity, External Approach (ICD-10-PCS; principal; 2021-01-21)
PROC: 3E073KZ Introduction of Other Diagnostic Substance into Coronary Artery, Percutaneous Approach (ICD-10-PCS; 2021-01-21)
DX: I25.119 Atherosclerotic heart disease of native coronary artery with unspecified angina pectoris (principal); N18.6 End stage renal disease; I12.0 Hypertensive chronic kidney disease with stage 5 chronic kidney disease or end stage renal disease; D64.9 Anemia, unspecified; E78.00 Pure hypercholesterolemia, unspecified; E78.5 Hyperlipidemia, unspecified; I35.0 Nonrheumatic aortic (valve) stenosis; I48.0 Paroxysmal atrial fibrillation; Z96.643 Presence of artificial hip joint, bilateral; M06.9 Rheumatoid arthritis, unspecified; Z60.2 Problems related to living alone; Z66 Do not resuscitate; Z79.82 Long term (current) use of aspirin; Z79.899 Other long term (current) drug therapy; Z82.49 Family history of ischemic heart disease and other diseases of the circulatory system; Z86.73 Personal history of transient ischemic attack (TIA), and cerebral infarction without residual deficits; Z99.2 Dependence on renal dialysis; Z88.0 Allergy status to penicillin; Z88.8 Allergy status to other drugs, medicaments and biological substances; Z90.49 Acquired absence of other specified parts of digestive tract; Z87.891 Personal history of nicotine dependence
CPT/HCPCS: 36415; 70450; 71045; 72125; 78452; 80053; 80061; 83036; 83735; 83880; 84100; 84484; 85025; 87081; 93005; 93017; 93306; 99285; A9500; G0378; J0280; J1644; J2270; J2785

== ENCOUNTER 2021-06-14 16:35 | Inpatient (IN) | payer OTHER ==
[~2021-06-14] VITALS: Ht 172.7 cm; Wt 53.0 kg
[~2021-06-14 16:35] MED LIST changes: +APIX2.5T PO; +ASPI-1071 PO; +ATOR20TA66 PO; +CARV6.253 PO; +ISOS30TA84 PO; +NITR0.4T51 SL
[2021-06-14] MEDS ORDERED: morphine 2 MG/ML inj. syringe IV ONE (18:30)
[2021-06-14] MEDS ORDERED: proCHLORperazine 10 MG/2 ml inj IV ONE (18:30)
[2021-06-14 19:09] LABS: BASOPHILS % (AUTO) 0.2 % (0-1); EOSINOPHILS % (AUTO) 0 % (0-6); HEMATOCRIT 35.5 % (35.0-45.0); HEMOGLOBIN 11.7 g/dl (12.0-16.0); LYMPHOCYTES # (AUTO) 1.6 X10'3 (1.1-4.8); LYMPHOCYTES % (AUTO) 8.8 % (21-51); MEAN CORPUSCULAR HEMOGLOBIN 33.5 PG (27.0-31.0); MEAN CORPUSCULAR VOLUME 101.4 FL (78-98); MEAN PLATELET VOLUME 10.3 FL (7.4-10.4); MONOCYTES # (AUTO) 0.9 X10'3 (0-0.9); MONOCYTES % (AUTO) 4.8 % (2-12); NEUTROPHILS # (AUTO) 15.6 X10'3 (1.8-7.7); NEUTROPHILS % (AUTO) 86.2 % (42-75); PLATELET COUNT 239 X10'3 (140-440); RED CELL DISTRIBUTION WIDTH 13.1 % (11.5-14.5); WHITE BLOOD COUNT 18.1 X10'3 (4.5-11.0)
[2021-06-14 19:18] LABS: AMYLASE 19 U/L (25-115)
[2021-06-14 19:19] LABS: ALANINE AMINOTRANSFERASE 9 U/L (12-78); ALBUMIN 3.3 G/DL (3.4-5.0); ALBUMIN/GLOBULIN RATIO 0.9 (1.1-1.5); ALKALINE PHOSPHATASE 96 IU/L (46-116); ANION GAP 13 (8-16); ASPARTATE AMINO TRANSFERASE 11 U/L (10-37); BILIRUBIN,TOTAL 0.6 MG/DL (0.1-1.0); BLOOD UREA NITROGEN 63 MG/DL (7-18); BUN/CREATININE RATIO 13.8 (6.6-38.0); CHLORIDE 102 MMOL/L (99-107); CREATININE 4.56 MG/DL (0.40-0.90); GLUCOSE 100 MG/DL (70-104); LIPASE < 50 U/L (73-393); POTASSIUM 4.7 MMOL/L (3.5-5.1); SODIUM 138 MMOL/L (135-145); TOTAL CARBON DIOXIDE 23.5 MMOL/L (24-32); TOTAL PROTEIN 7.1 G/DL (6.4-8.2); eGFR 9 ML/MIN
[2021-06-14 20:35] LABS: CLARITY,URINE CLOUDY (Clear); COLOR,URINE YELLOW (Yellow); GLUCOSE, URINE NEGATIVE (Neg); KETONES,URINE TRACE mg/dl (Neg); LEUKOCYTE ESTERASE ,URINE MODERATE (Neg); NITRITES, URINE NEGATIVE (Neg); OCCULT BLOOD,URINE SMALL (Neg); PH,URINE 7.5 (4.8-8.0); PROTEIN,URINE 100 mg/dl (Neg); UROBILINOGEN,URINE 0.2 E.U/dL (0.2-1.0)
[2021-06-14 20:52] LABS: UA COLLECTION TYPE STRAIGHT CATH
[2021-06-14 20:53] LABS: BACTERIA,URINE 2+ /HPF (Neg); MUCUS STRANDS FEW /LPF (Neg); SQUAMOUS EPITHELIAL CELL,UR FEW /LPF (FEW); WBC CLUMPS,URINE MODERATE /HPF (NEGATIVE); WBC,URINE TNTC /HPF (0-4)
--- NOTE | 2021-06-14 21:38 | NUR ---
PT OBSERVED WITH LEGS ON SIDE OF BED. RN CAME IN AND PT STATED SHE "WAS TRYING TO SIT UP" AND "DOESNT KNOW WHAT HAPPENED." RN SITUATED PATIENT BACK IN BED AND PUT BEDRAIL UP. PT COULD NOT RECALL HOW SHE GOT LIKE THAT. PT STATES SHE FEELS BAD ALL OVER BUT SAID IT IS NOT PAIN. PT STATED "I WISH SOMEONE WOULD JUST KILL ME." THIS IS A DIFFERENT DEMEANOR THAN PREVIOUSLY OBSERVED. RN PROVIDED EMOTIONAL COMFORT AND OFFERED PHYSICAL COMFORT MEASURES SUCH PILLOWS AND BLANKETS. PT REFUSED. PT REQUESTED WATER. SHE IS UNABLE TO EXPLAIN HOW SHE IS FEELING OR WHAT WOULD HELP. PT STATES SHE JUST FEELS DEPRESSED. PT IS A+OX4
[2021-06-14] MEDS ORDERED: levoFLOXACIN-Levaquin 250mg/D5 50 ML IV ONE (21:46)
--- NOTE | 2021-06-14 22:07 | NUR ---
RN OFFERED PT FOOD AND WATER. PT STATES THAT SHE IS FEELING BETTER.
[2021-06-14] MEDS ORDERED: CARCD120C PO (22:34)
--- NOTE | 2021-06-14 22:59 | NUR ---
Patient's branch lending manager called for an update. Patient confirmed okay to talk to branch lending manager. Jez is the name of the branch lending manager and stated his number is [phone] and would be patient's way of getting home.
[2021-06-15] MEDS ORDERED: bisacodyl 10mg suppository rectal RC PRN (00:10)
[2021-06-15] MEDS ORDERED: ipratropium/albuterol 3ml nebule NEB PRN (00:10)
[2021-06-15] MEDS ORDERED: magnesium hydroxide 30ml (MOM) UD suspension PO PRN (00:10)
[2021-06-15] MEDS ORDERED: diphenhydrAMINE 50 mg/ml inj IV PRN (00:10)
[2021-06-15] MEDS ORDERED: acetaminophen 325mg tablet PO PRN ×2 (00:10)
[2021-06-15] MEDS ORDERED: morphine 2 MG/ML inj. syringe IV PRN (00:10)
[2021-06-15] MEDS ORDERED: mag hydrox/Alum hydrox/simeth 30ml oral suspension PO PRN (00:10)
[2021-06-15 01:11] LABS: APTT 33 SECONDS (22-32)
[2021-06-15 01:26] LABS: CREATINE KINASE 23 U/L (26-192); HEMOGLOBIN A1C 5.5 % (4.5-6.2); MAGNESIUM 2.2 MG/DL (1.5-2.4); PHOSPHORUS 4.1 MG/DL (2.3-4.5)
[2021-06-15 01:27] LABS: D-DIMER 2.09 MG/L FEU (0-0.50)
--- NOTE | 2021-06-15 02:15 | NUR ---
Received report from Vianey SCHROEDER in the ER. Pt arrived on the unit via gurney and a slide board was used for transfer. Pt was on room air, saline locked, VSS, and with no signs of distress. Clothes were placed in a personal belongings bag and placed at bedside. Will continue to monitor
[2021-06-15 02:30] VITALS: BP 125/52
--- NOTE | 2021-06-15 06:15 | NUR ---
Problems reprioritized. Patient report given, questions answered & plan of care reviewed with Sonia SCHROEDER.
--- NOTE | 2021-06-15 06:23 | NUR ---
Patient in room CARMEN 356. I have received report from Sonia SCHROEDER and had the opportunity to ask questions and assume patient care.
--- NOTE | 2021-06-15 06:43 | NUR ---
Patient in room CARMEN 356. I have received report from ELDA Franco and had the opportunity to ask questions and assume patient care.
[2021-06-15] MEDS: heparin, porcine 5000 units/ml vial SQ SCH ×2 (07:47→21:59)
[2021-06-15] MEDS: diltiazem CD 120mg capsule (once-daily) PO SCH (07:48)
[2021-06-15] MEDS: pantoprazole 40mg Tablet.DR PO SCH (07:48)
[2021-06-15] MEDS: docusate sod 100mg capsule PO SCH ×2 (07:49→22:00)
[2021-06-15 08:01] VITALS: BP 134/61
[2021-06-15 11:00] VITALS: BP 125/87
--- NOTE | 2021-06-15 13:35 | NUR ---
Malnutrition Consult: Pt admit DX ESRD on HD, anasarca, R PNA, R pleural effusions, HTN, UTI per MD note. Pt reported 2-13 pound wt loss w/ decreased CORRECTIONAL FACILITY PSYCHIATRIST per RN Malnutrition Screen. Pt seen by RD at bedside; pt reports "lost ~105 pounds past year" though then reports UBW prior to wt loss ~150 pounds w/ current reported wt of 50kg this admit. Pt reports no appetite at baseline causing decreased intake past year. Upon RD assessment pt has visible severe muscle/fat wasting evident to temporal, triceps, clavicular, and sternal areas. Given visible muscle/fat wasting and general severe weakness pt meets severe malnutrition criteria; MD notified. Pt currently on renal diet pending PO trends; is agreeable to Nepro TIDWM for nutrition repletion. RD d/w RN regarding scaled wt this admit, liberalizing to regular diet, and appetite stimulant if MD agreeable. LBM 4/6 w/ no GI symptoms at this time time per pt during RD visit. Will monitor for further nutrition intervention needs. Rec: 1. liberalize to regular diet; encourage PO 2. Nepro TIDWM if MD agreeable to assist nutrition repletion 3. consider appetite stimulant per physician discretion given poor appetite past year per pt and malnutrition status 4. Phos binder w/ meals if MD agreeable; on HD 5. routine bowel care 6. scaled wt this admit; subsequent weekly wts 7. monitor for PO Acceptance; if poor PO meals/ONS consider supplemental vs sole EN to optimize nutrition status on HD Addendum: 06/15/21 at [address] Amended: Links added. Addendum: 06/15/21 at [address] UPDATE* Pt now on pureed/thin renal diet per EMR; GERALD notified MD recommends SURGICAL NURSE BSS.
[2021-06-15] MEDS: NUT.TX.IMP.RENAL FXN,LAC-REDUC (Nepro) 237 ML VANILLA PO SCH (18:14)
--- NOTE | 2021-06-15 18:46 | NUR ---
Problems reprioritized. Patient report given, questions answered & plan of care reviewed with ELDA Wadr.
--- NOTE | 2021-06-15 18:50 | NUR ---
Patient in room CARMEN 356. I have received report from CELIO SCHROEDER and had the opportunity to ask questions and assume patient care.
[2021-06-15 20:00] VITALS: BP 140/55
[2021-06-15] MEDS: temazepam 15mg capsule PO PRN (21:57)
[2021-06-16] VITALS: BP 130/59
[2021-06-16] MEDS: HYDROcodone/acetaminophen 5mg/325mg tablet PO PRN ×2 (06:12→17:47)
[2021-06-16 06:22] LABS: BASOPHILS % (AUTO) 0.3 % (0-1); EOSINOPHILS # (AUTO) 0.2 X10'3 (0-0.9); EOSINOPHILS % (AUTO) 3.1 % (0-6); HEMATOCRIT 33.8 % (35.0-45.0); HEMOGLOBIN 11.3 g/dl (12.0-16.0); LYMPHOCYTES # (AUTO) 1.2 X10'3 (1.1-4.8); MEAN CORPUSCULAR HGB CONC 33.4 g/dL (33.0-36.5); MEAN CORPUSCULAR VOLUME 101.9 FL (78-98); MEAN PLATELET VOLUME 9.7 FL (7.4-10.4); MONOCYTES # (AUTO) 0.7 X10'3 (0-0.9); MONOCYTES % (AUTO) 9.5 % (2-12); NEUTROPHILS # (AUTO) 5.1 X10'3 (1.8-7.7); NEUTROPHILS % (AUTO) 70.1 % (42-75); PLATELET COUNT 238 X10'3 (140-440); RED BLOOD COUNT 3.32 X10'6 (4.20-5.60); RED CELL DISTRIBUTION WIDTH 13.1 % (11.5-14.5); WHITE BLOOD COUNT 7.2 X10'3 (4.5-11.0)
--- NOTE | 2021-06-16 06:25 | NUR ---
Problems reprioritized. Patient report given, questions answered & plan of care reviewed with CELIO SCHROEDER.
--- NOTE | 2021-06-16 06:30 | NUR ---
Patient in room CARMEN 356. I have received report from ELDA Ward and had the opportunity to ask questions and assume patient care.
[2021-06-16 06:38] LABS: ALANINE AMINOTRANSFERASE 9 U/L (12-78); ALBUMIN 2.8 G/DL (3.4-5.0); ALBUMIN/GLOBULIN RATIO 0.8 (1.1-1.5); ALKALINE PHOSPHATASE 80 IU/L (46-116); ANION GAP 10 (8-16); ASPARTATE AMINO TRANSFERASE 10 U/L (10-37); BILIRUBIN,TOTAL 0.4 MG/DL (0.1-1.0); BLOOD UREA NITROGEN 78 MG/DL (7-18); BUN/CREATININE RATIO 15.6 (6.6-38.0); CALCIUM 8.6 MG/DL (8.5-10.1); CHLORIDE 107 MMOL/L (99-107); CREATININE 4.99 MG/DL (0.40-0.90); GLUCOSE 104 MG/DL (70-104); MAGNESIUM 2.3 MG/DL (1.5-2.4); PHOSPHORUS 4.6 MG/DL (2.3-4.5); SODIUM 142 MMOL/L (135-145); TOTAL CARBON DIOXIDE 25.1 MMOL/L (24-32); TOTAL PROTEIN 6.2 G/DL (6.4-8.2); eGFR 8 ML/MIN
[2021-06-16 07:00] VITALS: BP 134/53
[2021-06-16] MEDS: diltiazem CD 120mg capsule (once-daily) PO SCH (07:53)
[2021-06-16] MEDS: docusate sod 100mg capsule PO SCH ×2 (07:53→20:04)
[2021-06-16] MEDS: levoFLOXACIN-Levaquin 500mg/D5 100 ML IV SCH (07:53)
[2021-06-16] MEDS: pantoprazole 40mg Tablet.DR PO SCH (07:53)
[2021-06-16] MEDS: NUT.TX.IMP.RENAL FXN,LAC-REDUC (Nepro) 237 ML VANILLA PO SCH ×3 (07:54→18:00)
[2021-06-16] MEDS: heparin, porcine 5000 units/ml vial SQ SCH ×2 (07:54→20:05)
[2021-06-16] MEDS: ondansetron/PF 4mg/2ml inj IV PRN ×2 (10:48→17:47)
--- NOTE | 2021-06-16 10:57 | NUR ---
T/C to recreation engineer waiver analyst, [phone], and message left to set up in house HD.
--- NOTE | 2021-06-16 12:02 | NUR ---
Message: Sonia Mello [phone] re Okeefe 356B cyber systems operations specialist out of town collection clerk states hospitalist needs to contact cyber systems operations specialist game programmer (Dr Alatorre) to set up HD. Thank you
[2021-06-16] MEDS ORDERED: normal saline 1000ml 100 ML IV PRN (12:45)
[2021-06-16] MEDS ORDERED: normal saline 1000ml 250 ML IV PRN (12:45)
[2021-06-16] MEDS ORDERED: heparin 1,000 units/ml 10ml inj IV ONE (12:45)
[2021-06-16] MEDS ORDERED: heparin 1,000 units/ml 10ml inj HE ONE (12:45)
[2021-06-16] MEDS ORDERED: heparin 1,000unit/ml 10ml vial 10 ML IV ONE (12:45)
[2021-06-16] MEDS ORDERED: metoclopramide 5 mg/ml inj IV ONE (13:00)
--- NOTE | 2021-06-16 17:18 | NUR ---
Pt moved to room 348B with all belongings.
--- NOTE | 2021-06-16 18:10 | NUR ---
Problems reprioritized. Patient report given, questions answered & plan of care reviewed with ELDA Ward.
--- NOTE | 2021-06-16 18:30 | NUR ---
Patient in room CARMEN 348. I have received report from CELIO SCHROEDER and had the opportunity to ask questions and assume patient care.
[2021-06-16 20:00] VITALS: BP 129/52
[2021-06-16] MEDS: temazepam 15mg capsule PO PRN (20:03)
[2021-06-17 04:05] VITALS: BP 130/59
[2021-06-17] MEDS: HYDROcodone/acetaminophen 5mg/325mg tablet PO PRN ×2 (05:07→11:23)
--- NOTE | 2021-06-17 06:06 | NUR ---
Problems reprioritized. Patient report given, questions answered & plan of care reviewed with CELIO SCHROEDER.
[2021-06-17 06:15] LABS: BASOPHILS % (AUTO) 0.5 % (0-1); EOSINOPHILS # (AUTO) 0.2 X10'3 (0-0.9); EOSINOPHILS % (AUTO) 2.3 % (0-6); HEMATOCRIT 35.3 % (35.0-45.0); HEMOGLOBIN 11.4 g/dl (12.0-16.0); LYMPHOCYTES # (AUTO) 1.1 X10'3 (1.1-4.8); LYMPHOCYTES % (AUTO) 14.7 % (21-51); MEAN CORPUSCULAR HEMOGLOBIN 32.8 PG (27.0-31.0); MEAN CORPUSCULAR HGB CONC 32.4 g/dL (33.0-36.5); MEAN CORPUSCULAR VOLUME 101.2 FL (78-98); MEAN PLATELET VOLUME 10.4 FL (7.4-10.4); MONOCYTES # (AUTO) 0.9 X10'3 (0-0.9); MONOCYTES % (AUTO) 12.4 % (2-12); NEUTROPHILS # (AUTO) 5.1 X10'3 (1.8-7.7); NEUTROPHILS % (AUTO) 70.1 % (42-75); PLATELET COUNT 262 X10'3 (140-440); RED BLOOD COUNT 3.49 X10'6 (4.20-5.60); RED CELL DISTRIBUTION WIDTH 13.3 % (11.5-14.5); WHITE BLOOD COUNT 7.3 X10'3 (4.5-11.0)
[2021-06-17 06:22] LABS: ALANINE AMINOTRANSFERASE 7 U/L (12-78); ALBUMIN/GLOBULIN RATIO 0.8 (1.1-1.5); ALKALINE PHOSPHATASE 79 IU/L (46-116); ANION GAP 10 (8-16); ASPARTATE AMINO TRANSFERASE 9 U/L (10-37); BILIRUBIN,TOTAL 0.3 MG/DL (0.1-1.0); BLOOD UREA NITROGEN 77 MG/DL (7-18); BUN/CREATININE RATIO 15.6 (6.6-38.0); CHLORIDE 106 MMOL/L (99-107); CREATININE 4.95 MG/DL (0.40-0.90); GLUCOSE 99 MG/DL (70-104); MAGNESIUM 2.5 MG/DL (1.5-2.4); PHOSPHORUS 4.7 MG/DL (2.3-4.5); SODIUM 141 MMOL/L (135-145); TOTAL CARBON DIOXIDE 25.4 MMOL/L (24-32); TOTAL PROTEIN 6.6 G/DL (6.4-8.2); eGFR 8 ML/MIN
--- NOTE | 2021-06-17 06:27 | NUR ---
Patient in room CARMEN 348. I have received report from ELDA Ward and had the opportunity to ask questions and assume patient care.
[2021-06-17 07:00] VITALS: BP 122/56
[2021-06-17] MEDS ORDERED: heparin 1,000 units/ml 10ml inj HE ONE ×2 (08:00)
[2021-06-17] MEDS: NUT.TX.IMP.RENAL FXN,LAC-REDUC (Nepro) 237 ML VANILLA PO SCH ×3 (08:00→18:00)
[2021-06-17] MEDS: diltiazem CD 120mg capsule (once-daily) PO SCH (08:00)
[2021-06-17] MEDS: docusate sod 100mg capsule PO SCH ×2 (08:15→19:40)
[2021-06-17] MEDS: heparin, porcine 5000 units/ml vial SQ SCH ×2 (08:16→19:40)
[2021-06-17] MEDS: pantoprazole 40mg Tablet.DR PO SCH (08:16)
[2021-06-17] MEDS ORDERED: heparin 1,000 units/ml 10ml inj IV ONE (09:05)
[2021-06-17] MEDS ORDERED: heparin 1,000unit/ml 10ml vial 10 ML IV ONE (09:05)
[2021-06-17 11:00] VITALS: BP 131/56
[2021-06-17] MEDS: ondansetron/PF 4mg/2ml inj IV PRN (11:24)
[2021-06-17] MEDS ORDERED: metoclopramide 5 mg/ml inj IV PRN (12:40)
--- NOTE | 2021-06-17 18:36 | NUR ---
Problems reprioritized. Patient report given, questions answered & plan of care reviewed with ELDA Ward.
--- NOTE | 2021-06-17 18:52 | NUR ---
Patient in room CARMEN 348. I have received report from ELDA Scott and had the opportunity to ask questions and assume patient care.
[2021-06-17 19:00] VITALS: BP 130/65
[2021-06-18] VITALS: BP 138/68
[2021-06-18] MEDS: HYDROcodone/acetaminophen 5mg/325mg tablet PO PRN (04:43)
--- NOTE | 2021-06-18 06:01 | NUR ---
Problems reprioritized. Patient report given, questions answered & plan of care reviewed with ELDA Meade.
--- NOTE | 2021-06-18 06:30 | NUR ---
Patient in room CARMEN 348. I have received report from Yvonne SCHROEDER and had the opportunity to ask questions and assume patient care. Addendum: 06/18/21 at 1815 by Chet Finley RN incorrect patient
[2021-06-18 07:05] LABS: BASOPHILS % (AUTO) 0.5 % (0-1); EOSINOPHILS # (AUTO) 0.2 X10'3 (0-0.9); EOSINOPHILS % (AUTO) 3.2 % (0-6); HEMATOCRIT 31.8 % (35.0-45.0); HEMOGLOBIN 10.8 g/dl (12.0-16.0); LYMPHOCYTES # (AUTO) 1.3 X10'3 (1.1-4.8); LYMPHOCYTES % (AUTO) 21.1 % (21-51); MEAN CORPUSCULAR HGB CONC 33.8 g/dL (33.0-36.5); MEAN CORPUSCULAR VOLUME 100.4 FL (78-98); MEAN PLATELET VOLUME 9.4 FL (7.4-10.4); MONOCYTES # (AUTO) 0.8 X10'3 (0-0.9); MONOCYTES % (AUTO) 13.1 % (2-12); NEUTROPHILS # (AUTO) 3.9 X10'3 (1.8-7.7); NEUTROPHILS % (AUTO) 62.1 % (42-75); PLATELET COUNT 273 X10'3 (140-440); RED BLOOD COUNT 3.17 X10'6 (4.20-5.60); RED CELL DISTRIBUTION WIDTH 12.8 % (11.5-14.5); WHITE BLOOD COUNT 6.2 X10'3 (4.5-11.0)
[2021-06-18 07:16] LABS: ALANINE AMINOTRANSFERASE 6 U/L (12-78); ALBUMIN 2.9 G/DL (3.4-5.0); ALBUMIN/GLOBULIN RATIO 0.9 (1.1-1.5); ALKALINE PHOSPHATASE 72 IU/L (46-116); ANION GAP 8 (8-16); ASPARTATE AMINO TRANSFERASE 8 U/L (10-37); BILIRUBIN,TOTAL 0.4 MG/DL (0.1-1.0); BLOOD UREA NITROGEN 33 MG/DL (7-18); BUN/CREATININE RATIO 10.4 (6.6-38.0); CALCIUM 8.6 MG/DL (8.5-10.1); CHLORIDE 104 MMOL/L (99-107); CREATININE 3.16 MG/DL (0.40-0.90); GLUCOSE 94 MG/DL (70-104); PHOSPHORUS 3.7 MG/DL (2.3-4.5); POTASSIUM 4.3 MMOL/L (3.5-5.1); SODIUM 141 MMOL/L (135-145); TOTAL CARBON DIOXIDE 29.1 MMOL/L (24-32); TOTAL PROTEIN 6.3 G/DL (6.4-8.2); eGFR 14 ML/MIN
[2021-06-18 07:22] LABS: MAGNESIUM 2.1 MG/DL (1.5-2.4)
[2021-06-18 08:03] VITALS: BP 114/49
[2021-06-18] MEDS: pantoprazole 40mg Tablet.DR PO SCH (08:48)
[2021-06-18] MEDS: levoFLOXACIN-Levaquin 500mg/D5 100 ML IV SCH (08:48)
[2021-06-18] MEDS: docusate sod 100mg capsule PO SCH ×2 (08:48→19:42)
[2021-06-18] MEDS: heparin, porcine 5000 units/ml vial SQ SCH ×2 (08:49→19:43)
[2021-06-18] MEDS: NUT.TX.IMP.RENAL FXN,LAC-REDUC (Nepro) 237 ML VANILLA PO SCH ×3 (08:50→18:00)
--- NOTE | 2021-06-18 09:34 | NUR ---
Reassessment; Pt continues on Puree diet per WIND POWER PROJECT MANAGER recs, still w/ low PO intake, mostly 0-25% of meals plus 37% x 6 ONS, overall not meeting nutritional needs. Pt may benefit from NG TF this admit if within PO to meet needs while on HD and given malnourished status. Continues on HD, last treatment 06/17 w/ 2L out per documentation. LBM 06/14 receiving routine Colace. Will continue to monitor. Rec: 1. advance to regular diet per WIND POWER PROJECT MANAGER/MD recs; encourage PO 2. Nepro TIDWM to assist nutrition repletion 3. consider appetite stimulant per physician discretion given poor appetite past year per pt and malnutrition status 4. Consider supplemental vs sole EN to optimize nutrition status on HD 5. Phos binder w/ meals if MD agreeable; on HD 6. routine bowel care 7. Scaled wts w/ HD Addendum: 06/18/21 at [address] Amended: Links added.
[2021-06-18 12:07] VITALS: BP 121/53
--- NOTE | 2021-06-18 15:00 | NUR ---
Patient in room CARMEN 348. I have received report from Diann SCHROEDER and had the opportunity to ask questions and assume patient care.
--- NOTE | 2021-06-18 15:49 | NUR ---
REPORT TO ERIKA CORNELL SUPERVISED BY RUFINA SCHROEDER.
--- NOTE | 2021-06-18 16:29 | NUR ---
PATIENT IS MISSING HALF OF HER DENTURES. Addendum: 06/18/21 at 1638 by Yonatan ORDONEZ Amended: Links added.
[2021-06-18 16:47] VITALS: BP 146/68
--- NOTE | 2021-06-18 17:07 | NUR ---
Patient put on her right side, assisted to push, produced a BM that was soft, brown and formed. Patient still feels that she has bowel to move, up with FWW to ambulate. Addendum: 06/18/21 at 1708 by Kate Mabry RN Amended: Links added.
--- NOTE | 2021-06-18 18:16 | NUR ---
Problems reprioritized. Patient report given, questions answered & plan of care reviewed with Michael Rincon.
[2021-06-18 19:15] VITALS: BP 124/61
[2021-06-19] VITALS: BP 122/56
[2021-06-19 06:42] LABS: BASOPHILS % (AUTO) 0.7 % (0-1); EOSINOPHILS # (AUTO) 0.2 X10'3 (0-0.9); HEMATOCRIT 33.4 % (35.0-45.0); HEMOGLOBIN 11.1 g/dl (12.0-16.0); LYMPHOCYTES # (AUTO) 1.2 X10'3 (1.1-4.8); LYMPHOCYTES % (AUTO) 20.5 % (21-51); MEAN CORPUSCULAR HEMOGLOBIN 33.2 PG (27.0-31.0); MEAN CORPUSCULAR HGB CONC 33.3 g/dL (33.0-36.5); MEAN CORPUSCULAR VOLUME 99.7 FL (78-98); MEAN PLATELET VOLUME 9.3 FL (7.4-10.4); MONOCYTES % (AUTO) 16.9 % (2-12); NEUTROPHILS # (AUTO) 3.5 X10'3 (1.8-7.7); NEUTROPHILS % (AUTO) 57.9 % (42-75); PLATELET COUNT 290 X10'3 (140-440); RED BLOOD COUNT 3.35 X10'6 (4.20-5.60); RED CELL DISTRIBUTION WIDTH 13.1 % (11.5-14.5); WHITE BLOOD COUNT 6.1 X10'3 (4.5-11.0)
--- NOTE | 2021-06-19 06:46 | NUR ---
Problems reprioritized. Patient report given, questions answered & plan of care reviewed with Halina SCHROEDER.
[2021-06-19 07:15] LABS: ALANINE AMINOTRANSFERASE 6 U/L (12-78); ALBUMIN 2.9 G/DL (3.4-5.0); ALBUMIN/GLOBULIN RATIO 0.9 (1.1-1.5); ALKALINE PHOSPHATASE 72 IU/L (46-116); ANION GAP 8 (8-16); ASPARTATE AMINO TRANSFERASE 9 U/L (10-37); BILIRUBIN,TOTAL 0.4 MG/DL (0.1-1.0); BLOOD UREA NITROGEN 42 MG/DL (7-18); BUN/CREATININE RATIO 11.1 (6.6-38.0); CALCIUM 8.8 MG/DL (8.5-10.1); CHLORIDE 104 MMOL/L (99-107); GLUCOSE 94 MG/DL (70-104); MAGNESIUM 2.3 MG/DL (1.5-2.4); PHOSPHORUS 4.5 MG/DL (2.3-4.5); POTASSIUM 4.5 MMOL/L (3.5-5.1); SODIUM 139 MMOL/L (135-145); TOTAL PROTEIN 6.3 G/DL (6.4-8.2); eGFR 11 ML/MIN
[2021-06-19 07:41] VITALS: BP 138/62
[2021-06-19] MEDS: pantoprazole 40mg Tablet.DR PO SCH (07:59)
[2021-06-19] MEDS: docusate sod 100mg capsule PO SCH ×2 (07:59→20:09)
[2021-06-19] MEDS: NUT.TX.IMP.RENAL FXN,LAC-REDUC (Nepro) 237 ML VANILLA PO SCH ×3 (08:00→20:10)
[2021-06-19] MEDS: heparin, porcine 5000 units/ml vial SQ SCH ×2 (08:00→20:10)
--- NOTE | 2021-06-19 10:55 | NUR ---
Dialysis doesn't have a nurse for dialysis until 5pm. They will be here then.
--- NOTE | 2021-06-19 10:57 | NUR ---
Paged Pt TO WORK WITH pt. Caregiver called to ask when he could take pt. home. PT. to see if pt. is appropriate to go home with marketing information coordinator.
--- NOTE | 2021-06-19 11:15 | NUR ---
Message: Alda Okeefe [phone] Spoke with [facility] pt. dialysis schedule should be Saturday//Saturday. So discharge pt and schedule dialysis OP at [facility] tomorrow? Halina [phone]
[2021-06-19 12:30] VITALS: BP 133/57
[2021-06-19 12:35] VITALS: BP 133/57
--- NOTE | 2021-06-19 13:23 | NUR ---
[facility] called to say they can take pt. at 1045 tomorrow as OP.
--- NOTE | 2021-06-19 13:38 | NUR ---
Message: Alda Okeefe [phone] Please call me to discuss this pt. have several things... spoke with fulfillment coordinator and [facility]. TIme limit for fulfillment coordinator if discharged. Halina [phone]
[2021-06-19 14:53] LABS: PLATELET ESTIMATE NORMAL; TOTAL CELLS COUNTED 100
--- NOTE | 2021-06-19 15:32 | NUR ---
Gave report to Asha SCHROEDER.
--- NOTE | 2021-06-19 15:35 | NUR ---
Patient in room CARMEN 348. I have received report from Halina SCHROEDER and had the opportunity to ask questions and assume patient care.
[2021-06-19] MEDS: ondansetron/PF 4mg/2ml inj IV PRN (15:52)
[2021-06-19] MEDS: HYDROcodone/acetaminophen 5mg/325mg tablet PO PRN ×2 (15:53→20:08)
--- NOTE | 2021-06-19 18:40 | NUR ---
Patient in room CARMEN 348. I have received report from CARI SCHROEDER and had the opportunity to ask questions and assume patient care.
[2021-06-19 20:00] VITALS: BP 129/59
[2021-06-20] VITALS (9 sets, daily range): BP systolic 91–132; BP diastolic 44–66
[2021-06-20] MEDS: HYDROcodone/acetaminophen 5mg/325mg tablet PO PRN ×3 (05:28→19:38)
[2021-06-20 06:07] LABS: BASOPHILS % (AUTO) 0.8 % (0-1); EOSINOPHILS # (AUTO) 0.4 X10'3 (0-0.9); EOSINOPHILS % (AUTO) 7.3 % (0-6); HEMATOCRIT 33.3 % (35.0-45.0); HEMOGLOBIN 11.1 g/dl (12.0-16.0); LYMPHOCYTES # (AUTO) 1.1 X10'3 (1.1-4.8); LYMPHOCYTES % (AUTO) 21.4 % (21-51); MEAN CORPUSCULAR HEMOGLOBIN 33.3 PG (27.0-31.0); MEAN CORPUSCULAR HGB CONC 33.4 g/dL (33.0-36.5); MEAN CORPUSCULAR VOLUME 99.7 FL (78-98); MEAN PLATELET VOLUME 9.4 FL (7.4-10.4); MONOCYTES # (AUTO) 0.7 X10'3 (0-0.9); NEUTROPHILS # (AUTO) 2.9 X10'3 (1.8-7.7); NEUTROPHILS % (AUTO) 56.5 % (42-75); PLATELET COUNT 302 X10'3 (140-440); RED BLOOD COUNT 3.34 X10'6 (4.20-5.60); RED CELL DISTRIBUTION WIDTH 12.9 % (11.5-14.5); WHITE BLOOD COUNT 5.2 X10'3 (4.5-11.0)
--- NOTE | 2021-06-20 06:30 | NUR ---
Problems reprioritized. Patient report given, questions answered & plan of care reviewed with OLYA SCHROEDER.
[2021-06-20 06:36] LABS: ALANINE AMINOTRANSFERASE 7 U/L (12-78); ALBUMIN 2.8 G/DL (3.4-5.0); ALBUMIN/GLOBULIN RATIO 0.8 (1.1-1.5); ALKALINE PHOSPHATASE 69 IU/L (46-116); ANION GAP 11 (8-16); ASPARTATE AMINO TRANSFERASE 5 U/L (10-37); BILIRUBIN,TOTAL 0.3 MG/DL (0.1-1.0); BLOOD UREA NITROGEN 48 MG/DL (7-18); BUN/CREATININE RATIO 11.5 (6.6-38.0); CALCIUM 8.9 MG/DL (8.5-10.1); CHLORIDE 103 MMOL/L (99-107); CREATININE 4.18 MG/DL (0.40-0.90); GLUCOSE 94 MG/DL (70-104); MAGNESIUM 2.4 MG/DL (1.5-2.4); PHOSPHORUS 4.8 MG/DL (2.3-4.5); POTASSIUM 4.6 MMOL/L (3.5-5.1); SODIUM 140 MMOL/L (135-145); TOTAL CARBON DIOXIDE 26.4 MMOL/L (24-32); TOTAL PROTEIN 6.2 G/DL (6.4-8.2); eGFR 10 ML/MIN
--- NOTE | 2021-06-20 06:40 | NUR ---
Patient in room CARMEN 348. I have received report from Ed SCHROEDER and had the opportunity to ask questions and assume patient care.
[2021-06-20] MEDS: pantoprazole 40mg Tablet.DR PO SCH ×2 (07:30→17:26)
[2021-06-20] MEDS: docusate sod 100mg capsule PO SCH ×2 (08:00→19:38)
[2021-06-20] MEDS ORDERED: normal saline 1000ml 100 ML IV PRN (08:00)
[2021-06-20] MEDS: NUT.TX.IMP.RENAL FXN,LAC-REDUC (Nepro) 237 ML VANILLA PO SCH ×3 (08:00→18:18)
[2021-06-20] MEDS: heparin, porcine 5000 units/ml vial SQ SCH ×2 (08:00→19:39)
[2021-06-20] MEDS: levoFLOXACIN 500mg tablet PO SCH ×2 (11:00→14:22)
--- NOTE | 2021-06-20 11:13 | NUR ---
Reassessment: PO intake fluctuates though overall poor, documented with average 71% of three meals however has refused all surrounding meals and ONS since last RD assessment 06/18. Patient's diet was inappropriately advanced to minced and moist with thin liquids 06/[address] recommendations for pureed food during admit as well as upon returning home d/t difficulty chewing d/t lack of teeth which has resulted in weight loss. Per forestry aid technician 06/18 pt missing half of her dentures. Pt now on a clear liquid pending EGD d/t intractable N/V and abdominal pain per MD note. Recommend advancing to pureed diet as medically indicated. ONS being held at this time as not appropriate on current diet order, however recommend discontinuing ONS altogether if pt continues to not accept it. Pt pending HD today per MD note. LBM 06/18. Will continue to follow closely. Recommendations: 1. Advance to PUREED diet with thin liquids per ST recs; no renal restriction given poor PO intake 2. Resume Nepro TIDWM to assist nutrition repletion with diet advancement; discontinue if pt not accepting 3. Consider appetite stimulant per physician discretion given poor appetite past year per pt and malnutrition status 4. Consider supplemental vs sole EN to optimize nutrition status 5. Phos binder with meals if MD agreeable; on HD 6. Routine bowel care 7. Scaled wts with HD Addendum: 06/20/21 at [address] Amended: Links added.
[2021-06-20 12:17] LABS: ALANINE AMINOTRANSFERASE 7 U/L (12-78); ALBUMIN/GLOBULIN RATIO 1.1 (1.1-1.5); ALKALINE PHOSPHATASE 73 IU/L (46-116); ANION GAP 5 (8-16); ASPARTATE AMINO TRANSFERASE 11 U/L (10-37); BILIRUBIN,TOTAL 0.3 MG/DL (0.1-1.0); BLOOD UREA NITROGEN 45 MG/DL (7-18); BUN/CREATININE RATIO 10.3 (6.6-38.0); CALCIUM 8.7 MG/DL (8.5-10.1); CHLORIDE 106 MMOL/L (99-107); CREATININE 4.36 MG/DL (0.40-0.90); GLUCOSE 91 MG/DL (70-104); SODIUM 139 MMOL/L (135-145); TOTAL CARBON DIOXIDE 27.9 MMOL/L (24-32); TOTAL PROTEIN 5.8 G/DL (6.4-8.2); eGFR 10 ML/MIN
[2021-06-20] MEDS ORDERED: fentaNYL/PF 50MCG/1 ML 2ML syringe ONE (15:05)
[2021-06-20] MEDS ORDERED: LIDOcaine Viscous 15ml cup ONE (15:05)
[2021-06-20] MEDS ORDERED: MIDAZolam 1 MG/ML 5ML VIAL ONE (15:05)
--- NOTE | 2021-06-20 17:53 | NUR ---
patient had dialysis today 1.5L removed. patient then went to have EGD. See reports . commenced on clear liquids. norco given x1 for pain with goos effect. Vomited x1 when returned from EGD, but did not want zofran following this. will continue to monitor
--- NOTE | 2021-06-20 18:31 | NUR ---
Problems reprioritized. Patient report given, questions answered & plan of care reviewed with Gus.
--- NOTE | 2021-06-20 18:35 | NUR ---
Patient in room CARMEN 348. I have received report from OLYA SCHROEDER and had the opportunity to ask questions and assume patient care.
[2021-06-21] VITALS: BP 129/58
[2021-06-21] MEDS: HYDROcodone/acetaminophen 5mg/325mg tablet PO PRN ×4 (00:22→22:09)
[2021-06-21] MEDS: temazepam 15mg capsule PO PRN (00:22)
--- NOTE | 2021-06-21 06:30 | NUR ---
Problems reprioritized. Patient report given, questions answered & plan of care reviewed with PAM SCHROEDER.
--- NOTE | 2021-06-21 06:41 | NUR ---
Patient in room CARMEN 348. I have received report from SIMI ALMARAZ RN and had the opportunity to ask questions and assume patient care.
--- NOTE | 2021-06-21 06:42 | NUR ---
PT IN BED APPEARS TO BE ASLEEP. CALL LIGHT IN REACH, BED LOW, RAILS UP X3
[2021-06-21 07:30] VITALS: BP 122/60
[2021-06-21] MEDS: pantoprazole 40mg Tablet.DR PO SCH ×3 (07:30→16:43)
[2021-06-21] MEDS: docusate sod 100mg capsule PO SCH ×2 (07:51→20:15)
[2021-06-21] MEDS: NUT.TX.IMP.RENAL FXN,LAC-REDUC (Nepro) 237 ML VANILLA PO SCH ×3 (07:52→18:11)
[2021-06-21] MEDS: heparin, porcine 5000 units/ml vial SQ SCH ×2 (07:52→20:15)
[2021-06-21] MEDS ORDERED: PANT40TA54 PO (10:26)
[2021-06-21] MEDS ORDERED: METO5TAB85 PO (10:26)
--- NOTE | 2021-06-21 11:11 | NUR ---
Dr Alatorre rounded and questioned DC plan for pt. Dr Basurto had not rounded to give me that information yet. Dr Alatorre asked for Dr Basurto to call if he was dicharging so he can arrange Dialysis at home tomorrow. Dr Basurto called inquiring about pt status. After discussion and plan to feed Renal diet if tolerated then DC. I informed him Dr Alatorre requested a call, Dr Basurto stated he didn't need to call him. Approx [address] Basurto called to notify he put in discharge orders, i reminded him of Dr Alatorre's request.
[2021-06-21 18:00] VITALS: BP 108/53
--- NOTE | 2021-06-21 23:50 | NUR ---
Problems reprioritized. Patient report given, questions answered & plan of care reviewed with Catie Haddad RN.
--- NOTE | 2021-06-22 | NUR ---
Patient in room CARMEN 348. I have received report from PAM SCHROEDER and had the opportunity to ask questions and assume patient care.
[2021-06-22] MEDS: temazepam 15mg capsule PO PRN (00:20)
--- NOTE | 2021-06-22 06:08 | NUR ---
Problems reprioritized. Patient report given, questions answered & plan of care reviewed with PAM SCHROEDER.
--- NOTE | 2021-06-22 06:24 | NUR ---
Patient in room CARMEN 348. I have received report from SIMI BELCHER RN and had the opportunity to ask questions and assume patient care.
[2021-06-22] MEDS: pantoprazole 40mg Tablet.DR PO SCH ×2 (07:55→17:00)
[2021-06-22] MEDS: heparin, porcine 5000 units/ml vial SQ SCH ×2 (07:55→21:36)
[2021-06-22] MEDS: docusate sod 100mg capsule PO SCH ×2 (07:55→21:37)
[2021-06-22 08:00] VITALS: BP 132/61
[2021-06-22] MEDS ORDERED: normal saline 1000ml 100 ML IV PRN (08:00)
[2021-06-22] MEDS: NUT.TX.IMP.RENAL FXN,LAC-REDUC (Nepro) 237 ML VANILLA PO SCH ×3 (08:00→17:52)
--- NOTE | 2021-06-22 09:11 | NUR ---
Per Hydration Plant Operator, according to Speech Tx recommendations pt is to have a puree diet w/ thin liquids. Diet order modified in [facility].
--- NOTE | 2021-06-22 09:11 | NUR ---
F/u: Noted patient's diet has been advanced to renal with no texture modification. TC to mechanical technologist with recommendation for adding pureed food with thin liquids to diet order per ST jean-baptiste. Addendum: 06/22/21 at [address] Amended: Links added.
[2021-06-22] MEDS: levoFLOXACIN 500mg tablet PO SCH (11:18)
[2021-06-22] MEDS ORDERED: LORazepam 2 mg/ml vial IV PRN (14:25)
[2021-06-22] MEDS ORDERED: acetaminophen 325mg tablet PO PRN (14:25)
--- NOTE | 2021-06-22 18:16 | NUR ---
Problems reprioritized. Patient report given, questions answered & plan of care reviewed with SIMI BELCHER RN.
--- NOTE | 2021-06-22 18:36 | NUR ---
promotional table spacer PAGER ID: [phone] MESSAGE: RODNEY 348B Alda Okeefe comfort care ordered. Please advise on continuing or dc of reg meds (heparin, protonix, Levaquin etc)
--- NOTE | 2021-06-22 18:40 | NUR ---
Patient in room CARMEN 348. I have received report from PAM SCHROEDER and had the opportunity to ask questions and assume patient care.
[2021-06-22 20:00] VITALS: BP 131/70
[2021-06-22] MEDS: sennosides/docusate sodium tablet PO SCH (21:35)
[2021-06-23] MEDS: temazepam 15mg capsule PO PRN (00:34)
[2021-06-23] MEDS: HYDROcodone/acetaminophen 5mg/325mg tablet PO PRN ×2 (00:35→12:28)
--- NOTE | 2021-06-23 06:30 | NUR ---
Problems reprioritized. Patient report given, questions answered & plan of care reviewed with CELIO SCHROEDER.
--- NOTE | 2021-06-23 06:51 | NUR ---
Patient in room CARMEN 348. I have received report from ELDA Ward and had the opportunity to ask questions and assume patient care.
[2021-06-23 07:00] VITALS: BP 140/81
[2021-06-23] MEDS: pantoprazole 40mg Tablet.DR PO SCH (07:00)
[2021-06-23] MEDS: sennosides/docusate sodium tablet PO SCH (08:00)
[2021-06-23] MEDS: NUT.TX.IMP.RENAL FXN,LAC-REDUC (Nepro) 237 ML VANILLA PO SCH (08:00)
[2021-06-23] MEDS: heparin, porcine 5000 units/ml vial SQ SCH (08:00)
[2021-06-23] MEDS: docusate sod 100mg capsule PO SCH (08:00)
--- NOTE | 2021-06-23 08:36 | NUR ---
F/u: Noted patient's code status has been changed to DNR with comfort care. Pt now on a regular diet. LBM 06/19, receiving routine bowel care. Will continue to follow per LOS. Recommendations: 1. Bowel care per comfort care measures Addendum: 06/23/21 at [address] Amended: Links added.
[2021-06-23 11:00] VITALS: BP 143/71
[2021-06-23] MEDS ORDERED: LORazepam 2 mg/ml vial IV PRN (12:55)
[2021-06-23] MEDS ORDERED: scopolamine 1.5mg patch.TD72 (72-hour patch) TD SCH (12:55)
[2021-06-23] MEDS: morphine 10mg/ml inj. IV PRN ×2 (14:59→17:35)
--- NOTE | 2021-06-23 16:43 | NUR ---
PAGER ID: [phone] MESSAGE: [facility] [phone] re O[address]fe 348B please call regarding code status. New order for palliative/comfort, need order to state DNR with comfort care. Thank you Return call from Dr Pagan stating that the patient is hospice and current code status of palliative/comfort reflects appropriate status.
[2021-06-23 18:00] VITALS: BP 124/59
--- NOTE | 2021-06-23 18:31 | NUR ---
Problems reprioritized. Patient report given, questions answered & plan of care reviewed with ELDA Gordon.
--- NOTE | 2021-06-23 18:49 | NUR ---
Patient in room CARMEN 348. I have received report from CELIO SCHROEDER and had the opportunity to ask questions and assume patient care.
[2021-06-23] MEDS: morphine 10mg/0.5ml (conc. morphine) oral syringe PO PRN (20:41)
[2021-06-24] MEDS: diphenhydrAMINE 25mg capsule PO PRN (00:18)
[2021-06-24] MEDS: morphine 10mg/ml inj. IV PRN ×2 (02:12→15:54)
[2021-06-24] MEDS: LORazepam 2 mg/ml vial IV PRN (03:20)
--- NOTE | 2021-06-24 06:19 | NUR ---
Problems reprioritized. Patient report given, questions answered & plan of care reviewed with CELIO SCHROEDER.
--- NOTE | 2021-06-24 06:26 | NUR ---
Patient in room CARMEN 348. I have received report from ELDA Gordon and had the opportunity to ask questions and assume patient care.
[2021-06-24 07:00] VITALS: BP 114/59
--- NOTE | 2021-06-24 09:30 | NUR ---
Pt states she wants to give this RN her gold band ring. I explained to pt that I cannot accept her ring and pt continues to insist that I take it. Pt also states she wants to give her carson ring to her granddaughter, Jessy. Both rings collected from pt and placed in pt's chart with label.
--- NOTE | 2021-06-24 17:00 | NUR ---
Pt rings, previously being stored in pt chart, sent to safe. Wristband placed on pt and receipt for safe placed in chart.
--- NOTE | 2021-06-24 18:37 | NUR ---
Problems reprioritized. Patient report given, questions answered & plan of care reviewed with ELDA Heath.
[2021-06-24 20:00] VITALS: BP 113/54
[2021-06-25] MEDS: diphenhydrAMINE 25mg capsule PO PRN ×2 (02:43→21:23)
[2021-06-25] MEDS: morphine 10mg/0.5ml (conc. morphine) oral syringe PO PRN (02:44)
--- NOTE | 2021-06-25 06:28 | NUR ---
Patient in room CARMEN 348. I have received report from NYDIA SCHROEDER and had the opportunity to ask questions and assume patient care.
[2021-06-25 06:56] VITALS: BP 114/55
[2021-06-25 18:00] VITALS: BP 114/46
[2021-06-26] MEDS: morphine 10mg/0.5ml (conc. morphine) oral syringe PO PRN (05:39)
--- NOTE | 2021-06-26 06:40 | NUR ---
Patient in room ORTHO 4016. I have received report from TEODORA SCHROEDER and had the opportunity to ask questions and assume patient care.
[2021-06-26 06:51] VITALS: BP 109/54
[2021-06-26 10:31] VITALS: BP 92/40
[2021-06-26] MEDS ORDERED: scopolamine 1mg/72 hr patch TD SCH (15:17)
[2021-06-26 18:00] VITALS: BP 107/51
--- NOTE | 2021-06-26 18:13 | NUR ---
Problems reprioritized. Patient report given, questions answered & plan of care reviewed with deacon lawson.
[2021-06-26 22:00] VITALS: BP 109/51
[2021-06-27] MEDS: diphenhydrAMINE 25mg capsule PO PRN (02:11)
--- NOTE | 2021-06-27 06:25 | NUR ---
Reviewed all charting and medication pass completed by loco Edwards and in agreement or otherwise charted.
--- NOTE | 2021-06-27 06:26 | NUR ---
Report given to Kate SCHROEDER.
--- NOTE | 2021-06-27 06:40 | NUR ---
Patient in room ORTHO 4016. I have received report from Krystle SCHROEDER and had the opportunity to ask questions and assume patient care.
[2021-06-27 10:00] VITALS: BP_SYST 124; BP_SYST 129; BP_DIAS 51; BP_DIAS 91
[2021-06-27] MEDS: morphine 10mg/0.5ml (conc. morphine) oral syringe PO PRN (11:35)
--- NOTE | 2021-06-27 11:57 | NUR ---
Student documentation: I have reviewed all interventions, assessments performed and documented by Yonatan ANDERSON. Student Medication Administration: For all medication-pass' in the time frame of 5155-1916, all medication were reviewed, dispensed, administered and documented per hospital policy by Yonatan ANDERSON.
--- NOTE | 2021-06-27 14:17 | NUR ---
Notify patients sister Yesenia when patient is going to be discharged. [phone]. Addendum: 06/27/21 at 1438 by Yonatan ORDONEZ Please disregard this note was charted in error.
--- NOTE | 2021-06-27 18:01 | NUR ---
Spoke with son Lio on the phone concerning what mortuary he would like his mother to be transported to. He wishes her to be transported to [place].
--- NOTE | 2021-06-27 19:43 | NUR ---
Son is present at patient bedside, assisted Son Lio in retrieving patient's rings stored in the hospital safe. Pt son verbalized he would be taking all of her belongings when he leaves this evening in the event his mother were to pass during the night. Will update belongings list once son leaves for the evening.
[2021-06-27 22:00] VITALS: BP 105/38
--- NOTE | 2021-06-28 06:31 | NUR ---
Report given to Halina SCHROEDER.
[2021-06-28 07:22] VITALS: BP 108/49
[2021-06-28 10:19] VITALS: BP 114/62
[2021-06-28] MEDS: morphine 10mg/0.5ml (conc. morphine) oral syringe PO PRN ×2 (11:00→13:23)
[2021-06-28] MEDS: LORazepam 2 mg/ml vial IV PRN (16:14)
--- NOTE | 2021-06-28 18:00 | NUR ---
Called kitchen for CC cart. Vikas says after tray line they will send one up for family.
--- NOTE | 2021-06-28 18:28 | NUR ---
Gave report to Renetta SCHROEDER. Pt. is currently still breathing. Family at bedside.
--- NOTE | 2021-06-28 18:30 | NUR ---
Patient in room [facility]TH[facility] 4016. I have received report from Halina SCHROEDER and had the opportunity to ask questions and assume patient care. Family at bedside with patient.
[2021-06-28 22:00] VITALS: BP 99/42
--- NOTE | 2021-06-29 03:19 | NUR ---
PAGER ID: [phone] MESSAGE: notifying you of [phone] comfort care patient has , call [phone]/Renetta with any questions
--- NOTE | 2021-06-29 03:20 | NUR ---
RN IS TO DOCUMENT YES TO ALL APPLICABLE AREAS Pronouncement of : 1. Time Physician Notified:[id number] 2. Date of :06/29/2021 3. Time of : 256 4. DNR/Withdraw life support documented: yes 5. Monitor strip has been placed on chart: yes 6. Assessment process is of one-minute duration and includes following criteria: a) Patient is unresponsive to all stimuli: yes b) Pupils fixed and non-reactive: yes c) Auscultation of precordium reveals absence of heart tones: yes d) Auscultation of lungs reveals absence of breath sounds: yes e) Absence of blood pressure / all vital signs: yes f) QRS complexes are not present on monitor / EKG strip: yes g) Pacer spikes without capture: yes 4. Comments:
--- NOTE | 2021-06-29 03:26 | NUR ---
Notified son of patients passing, son has all patients belongings and rings out of safe.
--- NOTE | 2021-06-29 06:11 | NUR ---
Report given to Halina SCHROEDER, Awaiting transportation by [facility].
--- NOTE | 2021-06-29 06:31 | NUR ---
[facility] here to take pt.
== END 2021-06-29 06:30 | DRG 193 ==
LOC: ER 16:36 → ED HOLD 22:16 → SUR 3N 06-15 02:15 → ORTHO 4S 06-25 14:33
PROVIDERS: ADMIT Family Medicine; ATTEND Family Medicine
PROC: CB121ZZ Planar Nuclear Medicine Imaging of Lungs and Bronchi using Technetium 99m (Tc-99m) (ICD-10-PCS; 2021-06-15)
PROC: 5A1D70Z Performance of Urinary Filtration, Intermittent, Less than 6 Hours Per Day (ICD-10-PCS; 2021-06-17)
PROC: 0DB48ZX Excision of Esophagogastric Junction, Via Natural or Artificial Opening Endoscopic, Diagnostic (ICD-10-PCS; principal; 2021-06-20)
PROC: 0DB68ZX Excision of Stomach, Via Natural or Artificial Opening Endoscopic, Diagnostic (ICD-10-PCS; 2021-06-20)
PROC: 5A1D70Z Performance of Urinary Filtration, Intermittent, Less than 6 Hours Per Day (ICD-10-PCS; 2021-06-20)
DX: J18.9 Pneumonia, unspecified organism (principal); N18.6 End stage renal disease; E43 Unspecified severe protein-calorie malnutrition; N39.0 Urinary tract infection, site not specified; Z68.1 Body mass index [BMI] 19.9 or less, adult; J90 Pleural effusion, not elsewhere classified; I12.0 Hypertensive chronic kidney disease with stage 5 chronic kidney disease or end stage renal disease; J98.11 Atelectasis; N20.0 Calculus of kidney; I46.9 Cardiac arrest, cause unspecified; M06.9 Rheumatoid arthritis, unspecified; K57.30 Diverticulosis of large intestine without perforation or abscess without bleeding; K44.9 Diaphragmatic hernia without obstruction or gangrene; E78.00 Pure hypercholesterolemia, unspecified; Z96.643 Presence of artificial hip joint, bilateral; R16.0 Hepatomegaly, not elsewhere classified; R62.7 Adult failure to thrive; B95.1 Streptococcus, group B, as the cause of diseases classified elsewhere; E78.5 Hyperlipidemia, unspecified; G89.29 Other chronic pain; R35.89 Other polyuria; I48.91 Unspecified atrial fibrillation; K21.00 Gastro-esophageal reflux disease with esophagitis, without bleeding; K22.70 Barrett's esophagus without dysplasia; K29.70 Gastritis, unspecified, without bleeding; Z51.5 Encounter for palliative care; Z90.49 Acquired absence of other specified parts of digestive tract; Z99.2 Dependence on renal dialysis; Z88.0 Allergy status to penicillin; Z88.8 Allergy status to other drugs, medicaments and biological substances; Z79.899 Other long term (current) drug therapy
CPT/HCPCS: 36415; 43239; 71045; 74176; 78582; 80053; 81001; 82150; 82550; 83036; 83690; 83735; 83880; 84100; 84484; 85007; 85025; 85379; 85610; 85730; 87077; 87081; 87088; 87186; 88305; 88312; 88342; 92508; 92616; 93005; 94760; 97110; 97116; 97161; 97530; 97535; 99152; 99285; A4620; A9539; A9540; G0257; G0378; J0780; J1644; J1956; J2060; J2250; J2270; J2274; J2405; J2765; J3010; J7120; Q0163